=== PATIENT | female | born 1945 | race Caucasian/White ===

== ENCOUNTER → 2018-01-12 | Outpatient (CLI) | payer MEDICARE ==
[2018-01-12 10:59] LABS: HCT 45.6 % (34.0-46.0); HGB 14.8 gm/dL (11.4-16.0); MCH 30.6 pg (25.0-35.0); MCHC 32.4 g/dL (31.0-37.0); MCV 94.5 fL (80.0-100.0); Mean Platelet Volume 7.9; Platelet Count 156 k/uL (150-450); RBC 4.82 m/uL (3.80-5.40); RDW 13.8 % (11.5-15.5)
[2018-01-12 11:27] LABS: Potassium 4.9 mmol/L (3.5-5.1)
== END | disposition home or self-care (01) ==
LOC: LABPAT 10:12
PROVIDERS: ATTEND Internal Medicine Interventional Cardiology
DX: Z01.812 Encounter for preprocedural laboratory examination (principal); R94.39 Abnormal result of other cardiovascular function study; I10 Essential (primary) hypertension; E78.2 Mixed hyperlipidemia; E78.5 Hyperlipidemia, unspecified
CPT/HCPCS: 36415; 80051; 82565; 84520; 85027

== ENCOUNTER 2018-01-27 06:12 | Day surgery (SDC) | payer MEDICARE ==
[~2018-01-27 06:12] MED LIST: ALPRAZolam 0.25 MG TAB PO PRN; ALPRAZolam 0.5 MG TAB PO PRN; ASPIRIN 325 MG TAB PO STA; ATORVASTATIN 80 MG TAB PO STA; NITROGLYCERIN SL TABS 0.4 MG TAB SUBLINGUAL PRN; SODIUM CHLORIDE 0.9% 1,000 ML in EMPTY BAG 1 BAG IV ONE
[2018-01-27] MEDS ORDERED: ATENOLOL 25 MG TAB PO STA (07:04)
[2018-01-27] MEDS ORDERED: SODIUM CHLORIDE 0.9% 1,000 ML IV ONE (07:05)
[2018-01-27] MEDS ORDERED: NICOTINE 21MG/24HR PATCH TRANSDERM STA (07:11)
[2018-01-27 07:17] LABS: Glucose,Whole Blood 153 mg/dL (75-99)
[2018-01-27] MEDS ORDERED: HEPARIN SODIUM 1,000 UN/ML (10ML VL) ONE (07:25)
[2018-01-27] MEDS ORDERED: VERAPAMIL 2.5 MG/ML 2 ML AMP ONE (07:25)
[2018-01-27] MEDS ORDERED: LIDOCAINE 1% INJ 10MG/ML (20 ML MDV) ONE (07:25)
[2018-01-27] MEDS ORDERED: fentaNYL (PF) 50 MCG/ML 2 ML AMP ONE (07:25)
[2018-01-27] MEDS ORDERED: LIDOCAINE 1% (PF) 10MG/ML VIAL SQ ONE (07:34)
[2018-01-27] MEDS ORDERED: fentaNYL (PF) 50 MCG/ML 2 ML AMP IVP ONE (07:34)
[2018-01-27] MEDS: VERAPAMIL SYRINGE (5 MG/10 ML) INTRAARTER ONE ×2 (07:35→08:30)
[2018-01-27] MEDS ORDERED: NITROGLYCERIN SL TABS 0.4 MG TAB SUBLINGUAL ONE ×2 (07:45→07:46)
[2018-01-27] MEDS ORDERED: PRASUGREL 10 MG TAB ONE (07:55)
[2018-01-27] MEDS ORDERED: PRASUGREL 10 MG TAB PO ONE (07:59)
[2018-01-27] MEDS ORDERED: IOPAMIDOL-370 125ML BTL INJ ONE (08:14)
[2018-01-27] MEDS ORDERED: NITROGLYCERIN 1000MCG/10ML SYRINGE INTRACORON ONE (08:25)
[2018-01-27] MEDS ORDERED: IOPAMIDOL-370 100ML BTL INJ ONE (08:28)
[2018-01-27] MEDS ORDERED: ATROPINE SULFATE 0.1 MG/ML 10ML SYRINGE IV PRN (08:52)
[2018-01-27] MEDS ORDERED: RX INFO: IV CONTRAST WAS GIVEN 1 EACH MISC MISCELLANE PRN (08:52)
[2018-01-27] MEDS ORDERED: NITROGLYCERIN SL TABS 0.4 MG TAB SUBLINGUAL PRN (08:52)
[2018-01-27] MEDS ORDERED: ZOLPIDEM 5 MG TAB PO PRN (08:52)
[2018-01-27] MEDS ORDERED: MAG HYDROX/AL HYDROX/SIMETH 30 ML CUP PO PRN (08:52)
[2018-01-27] MEDS ORDERED: NON-FORMULARY DRUG (Biotin [Biotin] 10,000 MCG) PO SCH (09:00)
[2018-01-27] MEDS ORDERED: SODIUM CHLORIDE 0.9% 1,000 ML IV SCH (09:00)
--- NOTE | 2018-01-27 09:37 | PTCA ---
PERCUTANEOUSTRANS CORORONARY ANGIOGRAPHY Mrs. Lyles is a 72-year-old female with a history of hypertension, hyperlipidemia, diabetes mellitus, who presented with symptoms of dyspnea and abnormal myocardial perfusion imaging, underwent cardiac catheterization, was found to have critical stenosis involving the mid LAD with chronic occluded right PLV with collaterals from the left system. In view of that, recommendation was made regarding angioplasty and stenting. The procedures, risks and complication were discussed with the patient who is in full understanding and agreement. PROCEDURE: A 6-Romansh FL 3.5 guiding catheter was introduced into the system after cannulating the left main, a 0.014 advanced medium weight J-wire was advanced across the lesion, positioned distal LAD. Attempts to advance a whisper J-wire into the LAD were unsuccessful because of the angulation. At that point, that wire was removed and a 2.5 x 8 mm Trek balloon was advanced and one inflation 8 atmospheres was done. Following that the balloon was removed and a 2.5 x 15 mm Xience ER stent was deployed, postdilated at 14 atmospheres after the last inflation, after appropriate wait, the balloon and the guidewire were withdrawn back in the guiding catheter. Images were obtained and repeated. Those images reveal stable successful stenting. At that point, the guiding catheter, the balloon and the guidewire were removed and left ventricular end-diastolic pressure was calculated. Following that, catheter and sheaths were removed, hemostasis was obtained with deployment of a TR band. There was no immediate complication. Patient is returned to her room in stable condition. Of note, the patient had no chest discomfort. She had EKG changes that resolved at the end of the procedure. She received a total dose of 12,000 units of intravenous heparin and her ACT was monitored. She received a loading dose off Effient. RESULTS: Successful stenting of the mid LAD with reduction of stenosis from 90% to 0% with diffuse intimal disease in the proximal segment. RECOMMENDATION: Patient will be continued on present therapy with aggressive risk modifications being initiated. The importance of dual antiplatelet treatment was discussed with the patient and her family who are in full understanding and agreement. Duration of procedure is 61 minutes. MMODL / IJN: [id number] / MTDD
--- NOTE | 2018-01-27 09:51 | CC ---
CARDIAC CATHETERIZATION REPORT Mrs. Lyles is a 72-year-old female with known history of hypertension, hyperlipidemia, diabetes mellitus, who presented with symptoms of dyspnea and had an abnormal myocardial perfusion imaging. In view of that, recommendation was made regarding cardiac catheterization. The procedure as well as the risks and the complications were discussed with the patient who is in full understanding and agreement. PROCEDURE: Patient was brought to labor arbitrator hearing office in the fasting semi-sedated state after receiving fentanyl and Benadryl and achieving moderate conscious sedated state. Using Xylocaine anesthesia in the Seldinger technique, a 6-Turkish sheath was introduced in the right radial artery. Selective right and left coronary angiography performed using 5- Turkish 3.5 bend right and left Reji catheters. Multiple views of the coronary artery including hemiaxial views obtained. Following that, angioplasty and stenting of the LAD was performed. Following that 5-Turkish tight pigtail catheter was introduced in the left ventricle and pressures were calculated. Following that, catheter and sheath were removed. Hemostasis was obtained with deployment of a TR band. There was no immediate complication. Patient is returned to her room in stable condition. Of note, the patient received intra-arterial verapamil as well as a total of 12,000 units of intravenous heparin throughout the angioplasty. FINDINGS: LEFT MAIN: This is a short size vessel trifurcating left circumflex, left anterior descending artery and ramus intermedius. Left main coronary artery has no evidence of high-grade stenosis. LEFT ANTERIOR DESCENDING ARTERY: This is a large-sized vessel reaching to the apex with a wraparound apex segment, tortuous throughout its course, giving rise to 2 diagonal branches. The second one is large in caliber. The proximal LAD has a 30% plaque. In the mid segment of the LAD, at a tortuous segment, there is 90% stenosis. The diagonal branch has 2 areas of disease up to 95% with diffuse intimal disease throughout the vessel. RAMUS INTERMEDIUS: This vessel is large in caliber, reaching to the apical lateral wall. The ramus intermedius has mild intimal disease in the proximal segment of 30% without any evidence of high-grade stenosis. LEFT CIRCUMFLEX: This is a nondominant vessel giving rise to 2 obtuse marginal branches, the first one is large in caliber, quite tortuous. The first obtuse marginal branch has an area of 30% to 40% plaque proximally. The rest of the vessel has diffuse intimal disease. RIGHT CORONARY ARTERY: This is a dominant vessel tortuous in the proximal and mid segment, giving rise to a PDA distally. The PLV is totally occluded at its origin from the mid segment. There is no significant antegrade with the PLV. COLLATERALS: There is collaterals from the left coronary system toward the right PLV. LEFT VENTRICULOGRAM: The left ventriculogram is not performed. HEMODYNAMICS: There was no gradient across the aortic valve. The left ventricular end- diastolic pressure was 12 mmHg. CONCLUSION: 1. Chronic chronically occluded right PLV with collaterals from the left system. 2. Significant disease in the mid LAD with significant disease in the second diagonal branch that is small in caliber. 3. Mild to moderate disease in the circumflex and the ramus intermedius. RECOMMENDATION: In view of finding anatomy, I am recommending proceeding with angioplasty and stenting of the LAD. The procedure as well as the risks and the complications were discussed with the patient who is in full understanding and agreement. POONAM / JUSTEN: [id number] / KESHAV
[2018-01-27] MEDS ORDERED: ALLOPURINOL 100 MG TAB PO SCH (11:00)
[2018-01-27] MEDS ORDERED: CALCIUM CARB-VIT D 500MG-200UN 1 EACH TAB PO SCH (11:00)
[2018-01-27] MEDS ORDERED: LISINOPRIL 5 MG TAB PO SCH (11:00)
[2018-01-27] MEDS ORDERED: ASPIRIN 81 MG PO SCH (11:00)
[2018-01-27 11:20] VITALS: BMI 39.2
[2018-01-27] MEDS ORDERED: amLODIPine 5 MG TAB PO STA ×2 (12:36→16:30)
[2018-01-27] MEDS: GLIMEPIRIDE 4 MG TAB PO SCH ×2 (12:41→16:37)
[2018-01-27 16:37] LABS: Glucose,Whole Blood 220 mg/dL (75-99)
[2018-01-27] MEDS ORDERED: ATORVASTATIN 40 MG TAB PO SCH (21:00)
[2018-01-27] MEDS ORDERED: LATANOPROST 0.005% OPHTH DROPS 2.5 ML BTL BOTH EYES SCH (21:00)
[2018-01-27 21:16] LABS: Glucose,Whole Blood 197 mg/dL (75-99)
[2018-01-28 06:17] LABS: Glucose,Whole Blood 164 mg/dL (75-99)
[2018-01-28] MEDS: GLIMEPIRIDE 4 MG TAB PO SCH (06:18)
[2018-01-28 06:53] LABS: Calcium 9.3 mg/dL (8.4-10.2); Potassium 3.8 mmol/L (3.5-5.1)
--- NOTE | 2018-01-28 07:39 | PN ---
PROGRESS NOTE Mrs. Lyles is a 72-year-old female with a history of hypertension, hyperlipidemia, diabetes mellitus, who presented with abnormal myocardial perfusion imaging, underwent cardiac catheterization, was found to have chronically occluded right PLV, significant stenosis in the mid LAD and the first diagonal branch, underwent stenting of her LAD. She is doing well this morning, ambulating without difficulty. Denying having any chest pain. No dizziness. No palpitation. No nausea. She is continued on aspirin 81 mg daily, atenolol 25 mg daily, Lipitor 40 mg daily, glimepiride 4 mg twice a day, lisinopril 5 mg daily and Effient 10 mg daily and allopurinol 100 mg daily. PHYSICAL EXAMINATION: Blood pressure 130/60 with a heart rate in the 60s. LUNGS: Clear. HEART: Regular rate and rhythm, S1, S2. No S3. No rub. ABDOMEN: Soft nontender. EXTREMITIES: No edema. Right radial pulse intact. LAB DATA: Revealed BUN and creatinine 32 and 1.09, potassium 3.8. EKG shows no acute changes. IMPRESSION: 1. Status post stenting of the left anterior descending artery. 2. Chronically occluded right PLV. 3. Hypertension. 4. Hyperlipidemia. 5. Diabetes mellitus. 6. Chronic tobacco use. RECOMMENDATION: Patient will be discharged home today and followed as an outpatient. MMODL / ROSENDAN: [id number] /
[2018-01-28 08:14] VITALS: BP 141/71; PULSE 53; RESP 18; TEMP 97.2
[2018-01-28] MEDS ORDERED: ATENOLOL 25 MG TAB PO SCH (09:00)
[2018-01-28] MEDS ORDERED: ASPIRIN 81 MG PO SCH (09:00)
[2018-01-28] MEDS ORDERED: PRASUGREL 10 MG TAB PO SCH (09:00)
== END 2018-01-28 08:35 | disposition home or self-care (01) ==
LOC: CATHCVL 06:12 → 6SEL 08:32 → CATHCVL 01-28 08:35
PROVIDERS: ATTEND Internal Medicine Interventional Cardiology
DX: I25.10 Atherosclerotic heart disease of native coronary artery without angina pectoris (principal); I25.82 Chronic total occlusion of coronary artery; R94.39 Abnormal result of other cardiovascular function study; I10 Essential (primary) hypertension; E11.9 Type 2 diabetes mellitus without complications; E78.2 Mixed hyperlipidemia; F17.210 Nicotine dependence, cigarettes, uncomplicated; Z82.49 Family history of ischemic heart disease and other diseases of the circulatory system; Z79.84 Long term (current) use of oral hypoglycemic drugs; Z79.82 Long term (current) use of aspirin; Z79.899 Other long term (current) drug therapy; Z88.6 Allergy status to analgesic agent; Z88.0 Allergy status to penicillin
CPT/HCPCS: 93458; 80048; C9600; C1769 ×4; C1887; C1894; C1725; C1874; S4990; J3010; J2001; J1644; Q9967 ×2

== ENCOUNTER 2018-08-10 11:36 | Emergency (ER) | payer MEDICARE ==
[2018-08-10 12:23] VITALS: BP 174/89; PULSE 63; RESP 16; TEMP 97.8
--- NOTE | 2018-08-10 12:55 | ED ---
General Adult HPI - General Chief complaint: Extremity Problem,Nontraumatic Stated complaint: Leg pain, unable to walk Time Seen by Provider: 08/10/18 12:32 Source: patient, RN notes reviewed, old records reviewed Mode of arrival: wheelchair Limitations: no limitations - History of Present Illness Initial comments: 73-year-old female presents for evaluation of pain in her right thigh. Symptoms began this morning. Patient is concerned about blood clot in the leg. She denies any injury or overuse. She states the pain is significantly worse with movement, improved by rest. No pain in the knee calf or ankle. No fever or chills. No abdominal pain nausea vomiting. - Related Data Home Medications Medication Instructions Recorded Confirmed Allopurinol [Zyloprim] 100 mg PO DAILY 01/24/18 08/10/18 Aspirin [Adult Low Dose Aspirin EC] 81 mg PO DAILY 01/24/18 08/10/18 Atenolol 25 mg PO DAILY 01/24/18 08/10/18 Atorvastatin [Lipitor] 40 mg PO HS 01/24/18 08/10/18 Biotin 10,000 mcg PO DAILY 01/24/18 08/10/18 Calcium Carbonate [Calcium] 600 mg PO DAILY 01/24/18 08/10/18 Glimepiride [Amaryl] 4 mg PO BID 01/24/18 08/10/18 Latanoprost Ophth [Xalatan 0.005%] 1 drops BOTH EYES HS 01/24/18 08/10/18 Turmeric Root Extract [Turmeric] 500 mg PO DAILY 01/24/18 08/10/18 metFORMIN HCL [Glucophage] 500 mg PO QID 01/24/18 08/10/18 Previous Rx's Medication Instructions Recorded Clopidogrel [Plavix] 75 mg PO DAILY #30 tablet 01/28/18 Lisinopril [Zestril] 5 mg PO DAILY #90 tab 01/28/18 Nitroglycerin Sl Tabs [Nitrostat] 0.4 mg SUBLINGUAL Q5M PRN #25 tab 01/28/18 HYDROcodone/APAP 5-325MG [[place] 1 tab PO Q6HR PRN #12 tab 08/10/18 5-325] Allergies Allergy/AdvReac Type Severity Reaction Status Date / Time ibuprofen Allergy Anaphylaxis Verified 08/10/18 12:42 pine AdvReac headaches Uncoded 08/10/18 12:23 Review of Systems ROS Statement: Those systems with pertinent positive or pertinent negative responses have been documented in the HPI. ROS Other: All systems not noted in ROS Statement are negative. Past Medical History Past Medical History: Diabetes Mellitus Additional Past Medical History / Comment(s): clotting disorder History of Any Multi-Drug Resistant Organisms: None Reported Past Surgical History: Cholecystectomy, Hernia Repair, Tubal Ligation Additional Past Surgical History / Comment(s): carpel tunnel Past Anesthesia/Blood Transfusion Reactions: Postoperative Nausea & Vomiting (PONV) Past Psychological History: No Psychological Hx Reported Past Alcohol Use History: None Reported Past Drug Use History: None Reported - Past Family History Sister(s) Family Medical History: Blood Disorder Additional Family Medical History / Comment(s): thrombosis disorder General Exam Limitations: no limitations General appearance: alert, in no apparent distress Head exam: Present: atraumatic, normocephalic Eye exam: Present: normal appearance, PERRL Neck exam: Present: normal inspection. Absent: tenderness, meningismus Respiratory exam: Present: normal lung sounds bilaterally Cardiovascular Exam: Present: regular rate, normal rhythm GI/Abdominal exam: Present: soft. Absent: distended, tenderness Extremities exam: Present: other (Right thigh, ecchymosis on the medial aspect proximal right thigh, femoral pulse 2+, skin is warm and dry, no cellulitis, no erythema, no fluctuance or induration, distal extremity is warm with positive Doppler signal. Normal cap refill.) Neurological exam: Present: alert, oriented X3, CN II-XII intact. Absent: motor sensory deficit Psychiatric exam: Present: normal affect, normal mood Skin exam: Present: warm, dry, intact. Absent: cyanosis, diaphoretic Course Vital Signs 08/10/18 12:20 Temperature 97.8 F Pulse Rate 63 Respiratory 16 Rate Blood Pressure 174/89 O2 Sat by Pulse 99 Oximetry Medical Decision Making - Medical Decision Making 73-year-old female presenting with right thigh pain. No signs of infection on exam, there is small amount of ecchymosis in the medial 5. Distal pulses present, strong Doppler signal in both DP and PT. Normal femoral pulse. Pain is worse with movement. X-rays obtained, this does show some osteoarthritis of the hip as well as calcified 3.7 cm structure which may represent calcified fibroid in the pelvis. No other acute bony abdomen is, no fracture or dislocation. Patient will be given pain control. She will follow-up with her primary care physician. Ultrasound is obtained, this is negative for DVT. Disposition Clinical Impression: Hip pain Disposition: HOME SELF-CARE Condition: Good Instructions (If sedation given, give patient instructions): Osteoarthritis (ED), Hip Sprain (ED) Prescriptions: HYDROcodone/APAP 5-325MG [[place] 5-325] 1 tab PO Q6HR PRN #12 tab PRN Reason: Pain Is patient prescribed a controlled substance at d/c from ED?: No Referrals: Mary Schwab MD [Primary Care Provider] - 1-2 days Time of Disposition: 14:38
--- NOTE | 2018-08-10 13:45 | US ---
EXAMINATION TYPE: US venous doppler duplex LE RT DATE OF EXAM: 08/10/2018 1:35 PM COMPARISON: US CLINICAL HISTORY: Pain. Pt states right leg pain SIDE PERFORMED: Right TECHNIQUE: The lower extremity deep venous system is examined utilizing real time linear array sonog steve with graded compression, doppler sonography and color-flow sonography. VESSELS IMAGED: External Iliac Vein (EIV) Common Femoral Vein Deep Femoral Vein Greater Saphenous Vein * Femoral Vein Popliteal Vein Small Saphenous Vein * Proximal Calf Veins (* superficial vessels) Grayscale, color doppler, spectral doppler imaging performed of the deep veins of the right lower ext remity. There is normal flow, compressibility, vascular waveforms. Right Leg: Negative for DVT IMPRESSION: No sonographic evidence of deep venous thrombosis within the right lower extremity.
--- NOTE | 2018-08-10 14:27 | XR ---
EXAMINATION TYPE: XR Hip Complete RT DATE OF EXAM: 08/10/2018 CLINICAL HISTORY: Right hip pain. TECHNIQUE: AP and frogleg views of the right hip are obtained. COMPARISON: None. FINDINGS: There is no acute fracture/dislocation evident in the right hip. Mild to moderate axial leeroy int space loss and acetabular spurring is present. Rounded calcified 3.7 cm right pelvic structure fa vors calcified fibroid. IMPRESSION: As above.
== END 2018-08-10 14:45 | disposition home or self-care (01) ==
LOC: EC 11:36
DX: M25.551 Pain in right hip (principal); M16.11 Unilateral primary osteoarthritis, right hip; R23.3 Spontaneous ecchymoses; E11.9 Type 2 diabetes mellitus without complications; Z88.6 Allergy status to analgesic agent; Z91.09 Other allergy status, other than to drugs and biological substances; Z79.82 Long term (current) use of aspirin; Z79.84 Long term (current) use of oral hypoglycemic drugs; Z79.899 Other long term (current) drug therapy
CPT/HCPCS: 73502; 99284

== ENCOUNTER → 2019-03-23 | Outpatient (CLI) | payer MEDICARE ==
--- NOTE | 2019-03-24 07:01 | US ---
EXAMINATION TYPE: US kidneys/renal and bladder DATE OF EXAM: 03/23/2019 COMPARISON: None CLINICAL HISTORY: R10.9 FLANK PAIN,R31.9 HEMATURIA. Right flank pain. EXAM MEASUREMENTS: Right Kidney: 11.1 x 5.6 x 4.5 cm Left Kidney: 11.5 x 4.3 x 4.6 cm Right Kidney: Possible hydronephrosis. Lateral lower pole cystic appearing lesion = 3.2 x 3.2 x 3.0 cm. Cortical thinning. Left Kidney: Cortical lobularity seen and thinning. No prominent masses or lesions seen. Bladder: Distended. Anechoic. Bilateral Jets not seen No nephrolithiasis is seen. No masses are identified. The urinary bladder is anechoic. Bilateral ureteral jets are seen. IMPRESSION: 1. Mild right-sided hydronephrosis. 2. Renal parenchymal thinning bilaterally with increased echogenicity of the renal parenchyma which m ay reflect medical renal disease
== END | disposition home or self-care (01) ==
LOC: RADUSWWP 14:16
PROVIDERS: ATTEND Family Medicine
DX: N13.30 Unspecified hydronephrosis (principal); R93.421 Abnormal radiologic findings on diagnostic imaging of right kidney; R93.422 Abnormal radiologic findings on diagnostic imaging of left kidney; Z91.018 Allergy to other foods
CPT/HCPCS: 76770

== ENCOUNTER → 2019-06-30 | Outpatient (CLI) | payer MEDICARE ==
[2019-06-30 12:43] LABS: HCT 48.5 % (34.0-46.0); HGB 16.1 gm/dL (11.4-16.0); MCH 30.5 pg (25.0-35.0); MCHC 33.1 g/dL (31.0-37.0); Mean Platelet Volume 8.2; Platelet Count 170 k/uL (150-450); RBC 5.27 m/uL (3.80-5.40); RDW 13.1 % (11.5-15.5); WBC 9.5 k/uL (3.8-10.6)
[2019-06-30 12:52] LABS: Calcium 10.1 mg/dL (8.4-10.2); Potassium 4.2 mmol/L (3.5-5.1)
== END | disposition home or self-care (01) ==
LOC: LABPAT 12:02
PROVIDERS: ATTEND Urology
DX: Z01.812 Encounter for preprocedural laboratory examination (principal); N13.30 Unspecified hydronephrosis; N39.0 Urinary tract infection, site not specified; E11.9 Type 2 diabetes mellitus without complications
CPT/HCPCS: 36415; 80048; 85027; 87077; 87086; 87186

== ENCOUNTER 2019-07-07 12:11 | Day surgery (SDC) | payer MEDICARE ==
--- NOTE | 2019-07-05 15:53 | P.HPIHPCON ---
History of Present Illness H&P Date: 07/07/19 Chief Complaint: right sided hydronephrosis Ms Lyles is 74 yo female with hx of gross hematuria and right sided hydronephrosis. CT Urogram demonstrated severe narrowing at the UPJ. I discussed with her the option of ureteroscopy, to better evaluate the narrowing and role o ut malignancy as the cause of obstruction. I discussed risk of bleeding and infection, I also discussed risk of injury to ureter. I discussed with her that given severity of stenosis we might need to do this as staged with stent placement followed by ureteroscopy. I discussed with her risk from anesthesia which include but not limited to heart attack, strokes, blood clots and even loss of life. She understood all risk and agreed to proceed with cystoscopy, right ureteroscopy and stent placement Consent for Procedure: I have explained the operation/procedure to the patient, including the risks, benefits, side effects, alternative therapies (including not receiving the proposed treatment or service), the likelihood of the patient achieving his/her goals, and potential recuperation problems for the procedure/sedation/analgesia, as well as any blood products, if indicated. I also explained to the patient the risks, benefits and side effects of the alternatives, as well as the risks related to not receiving the proposed procedure, care, treatment, or services. Past Medical History Past Medical History: Diabetes Mellitus Additional Past Medical History / Comment(s): clotting disorder History of Any Multi-Drug Resistant Organisms: None Reported Past Surgical History: Cholecystectomy, Hernia Repair, Tubal Ligation Additional Past Surgical History / Comment(s): carpel tunnel Past Anesthesia/Blood Transfusion Reactions: Postoperative Nausea & Vomiting (PONV) Past Psychological History: No Psychological Hx Reported Past Alcohol Use History: None Reported Past Drug Use History: None Reported - Past Family History Sister(s) Family Medical History: Blood Disorder Additional Family Medical History / Comment(s): thrombosis disorder Medications and Allergies Home Medications Medication Instructions Recorded Confirmed Type Allopurinol [Zyloprim] 100 mg PO DAILY 01/24/18 08/10/18 History Aspirin [Adult Low Dose Aspirin EC] 81 mg PO DAILY 01/24/18 08/10/18 History Atenolol 25 mg PO DAILY 01/24/18 08/10/18 History Atorvastatin [Lipitor] 40 mg PO HS 01/24/18 08/10/18 History Biotin 10,000 mcg PO DAILY 01/24/18 08/10/18 History Calcium Carbonate [Calcium] 600 mg PO DAILY 01/24/18 08/10/18 History Glimepiride [Amaryl] 4 mg PO BID 01/24/18 08/10/18 History Latanoprost Ophth [Xalatan 0.005%] 1 drops BOTH EYES HS 01/24/18 08/10/18 History Turmeric Root Extract [Turmeric] 500 mg PO DAILY 01/24/18 08/10/18 History metFORMIN HCL [Glucophage] 500 mg PO QID 01/24/18 08/10/18 History Clopidogrel [Plavix] 75 mg PO DAILY #30 tablet 01/28/18 08/10/18 Rx Lisinopril [Zestril] 5 mg PO DAILY #90 tab 01/28/18 08/10/18 Rx Nitroglycerin Sl Tabs [Nitrostat] 0.4 mg SUBLINGUAL Q5M PRN #25 tab 01/28/18 08/10/18 Rx HYDROcodone/APAP 5-325MG [[place] 1 tab PO Q6HR PRN #12 tab 08/10/18 Rx 5-325] Allergies Allergy/AdvReac Type Severity Reaction Status Date / Time ibuprofen Allergy Anaphylaxis Verified 08/10/18 12:42 pine AdvReac headaches Uncoded 08/10/18 12:23 Surgical - Exam - General well developed, well nourished, no distress - Respiratory normal expansion, normal respiratory effort - Abdomen Abdomen: soft, non tender - Psychiatric oriented to time, oriented to person, oriented to place Assessment and Plan Assessment: 74 yo female with hx of right sided severe hydronephrosis. -OR for right ureteroscopy and stent placement
[2019-07-06 13:37] VITALS: BMI 37.3
[~2019-07-07 12:11] MED LIST changes: -ALPRAZolam 0.25 MG TAB PO PRN; -ALPRAZolam 0.5 MG TAB PO PRN; -ASPIRIN 325 MG TAB PO STA; -ATORVASTATIN 80 MG TAB PO STA; +DEXAMETHASONE SOD PHOSPHATE 10 MG/ML 1 ML VIAL IV ONE; +HEPARIN SODIUM,PORCINE 5,000 UNIT/ML 1 ML VIAL SQ ONE; +HYDROmorphone 0.5 MG/0.5 ML SYRINGE IVP PRN; +LACTATED RINGERS 1,000 ML IV SCH; +LIDOCAINE 1% (10MG/ML) FOR IV START INTRADERMA PRN; +MIDAZOLAM 2 MG/2 ML VIAL IV PRN; -NITROGLYCERIN SL TABS 0.4 MG TAB SUBLINGUAL PRN; +ONDANSETRON 4 MG/2 ML VIAL IVP ONE; -SODIUM CHLORIDE 0.9% 1,000 ML in EMPTY BAG 1 BAG IV ONE; +fentaNYL (PF) 50 MCG/ML 2 ML AMP IVP PRN
[2019-07-07 12:33] VITALS: RESP 16
[2019-07-07 12:40] LABS: Glucose,Whole Blood 151 mg/dL (75-99)
[2019-07-07] MEDS ORDERED: LIDOCAINE 1% INJ 10MG/ML (20 ML MDV) ONE (14:55)
[2019-07-07] MEDS ORDERED: MIDAZOLAM 2 MG/2 ML VIAL ONE (14:55)
[2019-07-07] MEDS ORDERED: fentaNYL (PF) 50 MCG/ML 2 ML AMP ONE (14:55)
[2019-07-07] MEDS ORDERED: PROPOFOL 10 MG/ML 20 ML VIAL IV ONE (14:55)
[2019-07-07] MEDS ORDERED: SUCCINYLCHOLINE CHLORIDE 100 MG/5 ML SYR IV ONE (14:55)
[2019-07-07] MEDS ORDERED: IOPAMIDOL-370 50ML BTL MISCELLANE ONE (15:00)
[2019-07-07] MEDS ORDERED: LACTATED RINGERS 1,000 ML IV ONE (15:27)
[2019-07-07 16:32] LABS: Glucose,Whole Blood 132 mg/dL (75-99)
[2019-07-07 16:33] VITALS: TEMP 97.1
[2019-07-07 17:47] VITALS: BP 149/73; PULSE 69
--- NOTE | 2019-07-07 23:27 | FL ---
EXAMINATION TYPE: FL urography retrograde DATE OF EXAM: 07/07/2019 CLINICAL HISTORY: Right-sided hydronephrosis. TECHNIQUE: Fluoroscopy. COMPARISON: Renal ultrasound March 23, 2019. FINDINGS: Fluoroscopic guidance was provided during balloon dilatation of ureter stricture procedure performed by Dr. Oswald. A total of 1 minute 32 seconds of fluoroscopic time was utilized during th e procedure and 7 spot images are acquired. Images acquired show access of right ureter with hydronep hrosis and subsequent proximal angioplasty and stent insertion. IMPRESSION: As Above.
--- NOTE | 2019-07-09 21:35 | P.OP ---
Date of Procedure: 07/07/19 Preoperative Diagnosis: Right-sided hydronephrosis Postoperative Diagnosis: Same Procedure(s) Performed: Cystoscopy, right retrograde pyelogram,Ureteroscopy, balloon dilation, and stent placement Implants: 7Fr X 22 cm stent Anesthesia: MARIELY Surgeon: Justin Tai Estimated Blood Loss (ml): 5 Pathology: other (right renal pelvis cytology) Disposition: PACU Indications for Procedure: Ms Lyles is 74 yo female with hx of gross hematuria and right sided hydronephrosis. CT Urogram demonstrated severe narrowing at the UPJ. I discussed with her the option of ureteroscopy, to better evaluate the narrowing and role out malignancy as the cause of obstruction. I discussed risk of bleeding and infection, I also discussed risk of injury to ureter. I discussed with her that given severity of stenosis we might need to do this as staged with stent placement followed by ureteroscopy. I discussed with her risk from anesthesia which include but not limited to heart attack, strokes, blood clots and even loss of life. She understood all risk and agreed to proceed with cystoscopy, r ight ureteroscopy and stent placement Operative Findings: Tortures right proximal ureter, narrowing at the UPJ with hydronephrosis No suspcious lesions identified along the UPJ. Description of Procedure: The patient was brought to the operating room, general anesthesia was induced. She was prepped and draped in sterile fashion placed in a dorsal lithotomy position. A cystoscope fitted with a 22 Fr sheath was inserted per urethra. Cystoscopy was performed showed no abnormality within the bladder. The right ureteral orifice was intubated with a 6-Georgian open-ended catheter. Retrograde pyelogram was performed which showed narrowing at the UPJ with moderate hydronephrosis. the right proximal ureter also appeared tortures. No additional filling defect were identified. At this time sensor wire was advanced through the catheter and catheter was removed with wire in place. Next 11-13 Fr access sheath was advanced over the wire and into the proximal ureter.The scope was advanced, I was able to advance scope past the narrowing with UPJ with the assistance of wire. But of note the UPJ Was narrowed to 6-7Fr. Renoscopy was performed which showed no suspicious lesions concerning for malignancy within the kidney or UPJ. Renal cytology was obtained. Pull back ureteroscopy showed no injury to the ureter. The cystoscope was reinserted and right ureteral orfice was intubated with sensor wire. Next a 12 Fr balloon dilator was advanced over the wire and into the renal pelvis. The UPJ was dilated under fluoroscopy using the balloon dilator. The balloon dilator was removed with wire in place. Next a 7 Fr X 22 cm stent was advanced over the wire. the proxima curl was visualized on fluoroscopy while the distal curl was visualized using the cytoscope. Bladder was emptied at the end of case. Patient was awakened from anesthesia and taken to recovery room in stable condition
== END 2019-07-07 18:03 | disposition home or self-care (01) ==
LOC: OR 12:11
PROVIDERS: ATTEND Urology
DX: Q62.11 Congenital occlusion of ureteropelvic junction (principal); N13.30 Unspecified hydronephrosis; E11.9 Type 2 diabetes mellitus without complications; Z90.49 Acquired absence of other specified parts of digestive tract; Z98.51 Tubal ligation status; Z86.2 Personal history of diseases of the blood and blood-forming organs and certain disorders involving the immune mechanism; Z79.84 Long term (current) use of oral hypoglycemic drugs; Z79.02 Long term (current) use of antithrombotics/antiplatelets; Z79.82 Long term (current) use of aspirin; Z79.899 Other long term (current) drug therapy; Z88.6 Allergy status to analgesic agent; Z91.09 Other allergy status, other than to drugs and biological substances
CPT/HCPCS: 74420; 52332; C2625; C1769; C1758; J2250; J1100; J0690; J2405; J2001; J3010; J0330; J2704; Q9967; 88108

== ENCOUNTER 2019-11-09 16:33 | Observation (INO) | payer MEDICARE ==
[2019-11-09] MEDS ORDERED: methylPREDNISolone SOD SUCCI 125 MG/2 ML VIAL IV STA (17:17)
[2019-11-09] MEDS ORDERED: ONDANSETRON 4 MG/2 ML VIAL IVP STA ×2 (17:33→18:38)
[2019-11-09] MEDS ORDERED: MORPHINE SULFATE 2 MG/ML SYRINGE IVP ONE (17:33)
--- NOTE | 2019-11-09 17:33 | ED ---
Extremity Problem HPI - General Source: patient, RN notes reviewed Mode of arrival: wheelchair Limitations: no limitations <Ck Esteban - Last Filed: 11/09/19 18:31> <Crystal Estrada - Last Filed: 11/13/19 00:54> - General Chief complaint: Extremity Problem,Nontraumatic Stated complaint: Wrist Pain Time Seen by Provider: 11/09/19 17:04 - History of Present Illness Initial comments: 74-year-old female presents emergency from chief complaint of right wrist pain, swelling. Patient states his started abruptly when she woke up this morning. She states she does have some known arthritis. Patient states that she's never had any like this in the past. Patient states she saw PCP [facility] here for further evaluation. Patient states she took some sort of medication at home for arthritis which seemed to help. Patient does admit that she has ALLERGY to ibuprofen. (Ck Esteban) - Related Data Home Medications Medication Instructions Recorded Confirmed Allopurinol [Zyloprim] 100 mg PO DAILY 01/24/18 11/09/19 Atenolol 25 mg PO DAILY 01/24/18 11/09/19 Atorvastatin [Lipitor] 40 mg PO DAILY 01/24/18 11/09/19 Glimepiride [Amaryl] 4 mg PO BID 01/24/18 11/09/19 Latanoprost Ophth [Xalatan 0.005%] 1 drop BOTH EYES HS 01/24/18 11/09/19 metFORMIN HCL [Glucophage] 500 mg PO TID 01/24/18 11/09/19 Etodolac [Lodine] 400 mg PO BID 11/09/19 11/09/19 traMADol HCL 50 mg PO BID PRN 11/09/19 11/09/19 Previous Rx's Medication Instructions Recorded Lisinopril [Zestril] 5 mg PO DAILY #90 tab 01/28/18 Cephalexin [Keflex] 500 mg PO BID #4 cap 11/10/19 Allergies Allergy/AdvReac Type Severity Reaction Status Date / Time ibuprofen Allergy Anaphylaxis Verified 11/09/19 19:08 pine AdvReac headaches Uncoded 11/09/19 19:08 Review of Systems ROS Other: All systems not noted in ROS Statement are negative. <Ck Esteban - Last Filed: 11/09/19 18:31> ROS Other: All systems not noted in ROS Statement are negative. <Crystal Estrada Chase - Last Filed: 11/13/19 00:54> ROS Statement: Those systems with pertinent positive or pertinent negative responses have been documented in the HPI. Past Medical History Past Medical History: Diabetes Mellitus Additional Past Medical History / Comment(s): clotting disorder History of Any Multi-Drug Resistant Organisms: None Reported Past Surgical History: Cholecystectomy, Hernia Repair, Tubal Ligation Additional Past Surgical History / Comment(s): carpel tunnel, stent placed in right kidney and then removed Past Anesthesia/Blood Transfusion Reactions: Postoperative Nausea & Vomiting (PONV) Past Psychological History: No Psychological Hx Reported Smoking Status: Never smoker Past Alcohol Use History: None Reported Past Drug Use History: None Reported - Past Family History Sister(s) Family Medical History: Blood Disorder Additional Family Medical History / Comment(s): thrombosis disorder <Ck Esteban - Last Filed: 11/09/19 18:31> General Exam Limitations: no limitations General appearance: alert, in no apparent distress Head exam: Present: atraumatic, normocephalic, normal inspection Eye exam: Present: normal appearance, PERRL, EOMI. Absent: scleral icterus, conjunctival injection, periorbital swelling ENT exam: Present: normal exam, normal oropharynx, mucous membranes moist, TM's normal bilaterally Neck exam: Present: normal inspection, full ROM. Absent: tenderness, meningismus, lymphadenopathy Respiratory exam: Present: normal lung sounds bilaterally. Absent: respiratory distress, wheezes, rales, rhonchi, stridor Cardiovascular Exam: Present: regular rate, normal rhythm, normal heart sounds. Absent: systolic murmur, diastolic murmur, rubs, gallop, clicks Extremities exam: Present: other (Moderate swelling to the right wrist with erythema, increased warmth there is pain with range of motion there is small petechia noted distally and proximal to the area Refill less than 2 seconds.) <Ck Esteban - Last Filed: 11/09/19 18:31> Course Vital Signs 11/09/19 11/09/19 17:06 19:38 Temperature 99 F 98.4 F Pulse Rate 60 60 Respiratory 18 18 Rate Blood Pressure 206/93 170/78 O2 Sat by Pulse 96 98 Oximetry Medical Decision Making - Lab Data Result diagrams: 11/09/19 17:54 11/09/19 17:54 <Ck Esteban - Last Filed: 11/09/19 18:31> - Lab Data Result diagrams: 11/10/19 07:57 11/10/19 07:57 <Crystal Estrada - Last Filed: 11/13/19 00:54> - Medical Decision Making 74-year-old female presented for evaluation of right wrist pain since onset. This concern for possible septic arthritis versus pseudogout. Patient's will be admitted for IV antibiotics, orthopedic evaluation, pain control. Patient has had recent urinary stent removed secondary compilations infections is concerning as this could be a precursor for her infection. (Ck Esteban) I was available for consultation in the emergency department. The history and physical exam were done by the midlevel provider. I was consulted for this patients care. I reviewed the case with the midlevel provider and based on their presentation of the patient, I agree with the assessment, medical decision making and plan of care as documented. Chart was dictated using [employer] dictation software. Attempts were made to correct any dictation errors however some typographical errors may persist. Patient was seen during a national state of emergency due to the Covid-19 pandemic. (Crystal Estrada) - Lab Data Lab Results 11/09/19 11/09/19 11/09/19 Range/Units 17:54 17:54 17:54 WBC 13.8 H (3.8-10.6) k/uL RBC 4.67 (3.80-5.40) m/uL Hgb 14.1 (11.4-16.0) gm/dL Hct 43.2 (34.0-46.0) % MCV 92.5 (80.0-100.0) fL MCH 30.1 (25.0-35.0) pg MCHC 32.5 (31.0-37.0) g/dL RDW 13.3 (11.5-15.5) % Plt Count 175 (150-450) k/uL Neutrophils % 73 % Lymphocytes % 18 % Monocytes % 6 % Eosinophils % 2 % Basophils % 0 % Neutrophils # 10.0 H (1.3-7.7) k/uL Lymphocytes # 2.4 (1.0-4.8) k/uL Monocytes # 0.8 (0-1.0) k/uL Eosinophils # 0.3 (0-0.7) k/uL Basophils # 0.1 (0-0.2) k/uL ESR 47 H (0-20) mm/hr Sodium 140 (137-145) mmol/L Potassium 3.4 L (3.5-5.1) mmol/L Chloride 105 (98-107) mmol/L Carbon Dioxide 27 (22-30) mmol/L Anion Gap 8 mmol/L BUN 26 H (7-17) mg/dL Creatinine 0.96 (0.52-1.04) mg/dL Est GFR (CKD-EPI)AfAm 68 (>60 ml/min/1.73 sqM) Est GFR (CKD-EPI)NonAf 59 (>60 ml/min/1.73 sqM) Glucose 235 H (74-99) mg/dL Uric Acid 4.9 (3.7-7.4) mg/dL Calcium 8.5 (8.4-10.2) mg/dL Total Bilirubin 0.7 (0.2-1.3) mg/dL AST 15 (14-36) U/L ALT 18 (4-34) U/L Alkaline Phosphatase 90 (38-126) U/L C-Reactive Protein 47.3 H (<10.0) mg/L Total Protein 6.2 L (6.3-8.2) g/dL Albumin 3.5 (3.5-5.0) g/dL Rheumatoid Factor 7 (0-15) IU/mL CRISTAL Screen NEGATIVE (NEGATIVE) Disposition <Ck Esteban - Last Filed: 11/09/19 18:31> <Crystal Estrada - Last Filed: 11/13/19 00:54> Clinical Impression: Septic arthritis of right wrist Disposition: ADMITTED IP TO THIS [facility] Condition: Fair
--- NOTE | 2019-11-09 17:55 | XR ---
EXAMINATION TYPE: XR wrist complete RT DATE OF EXAM: 11/09/2019 CLINICAL HISTORY: Pain and swelling. TECHNIQUE: Frontal, lateral, scaphoid, and oblique images of the right wrist are obtained. COMPARISON: None FINDINGS: There is no acute fracture/dislocation evident in the right wrist. Moderate to severe narr owing base of first metacarpal and triscaphe joint. Narrowing of the radiocarpal joint. Demineralizat ion is present. Subchondral cyst formation base of the capitate. Mild diffuse subcutaneous edema is p resent. IMPRESSION: As above.
[2019-11-09 17:59] LABS: Basophils # (A) 0.1 k/uL (0-0.2); Basophils % (A) 0 %; Eosinophils # (A) 0.3 k/uL (0-0.7); Eosinophils % (A) 2 %; HCT 43.2 % (34.0-46.0); HGB 14.1 gm/dL (11.4-16.0); Lymphocytes # (A) 2.4 k/uL (1.0-4.8); Lymphocytes % (A) 18 %; MCH 30.1 pg (25.0-35.0); MCHC 32.5 g/dL (31.0-37.0); MCV 92.5 fL (80.0-100.0); Monocytes # (A) 0.8 k/uL (0-1.0); Monocytes % (A) 6 %; Neutrophils % (A) 73 %; Platelet Count 175 k/uL (150-450); RBC 4.67 m/uL (3.80-5.40); RDW 13.3 % (11.5-15.5); WBC 13.8 k/uL (3.8-10.6)
[2019-11-09 18:19] LABS: Albumin 3.5 g/dL (3.5-5.0); C Reactive Protein 47.3 mg/L (<10.0); Calcium 8.5 mg/dL (8.4-10.2); Potassium 3.4 mmol/L (3.5-5.1); Total Bilirubin 0.7 mg/dL (0.2-1.3); Total Protein 6.2 g/dL (6.3-8.2); Uric Acid 4.9 mg/dL (3.7-7.4)
[2019-11-09] MEDS ORDERED: CEFEPIME 2 GM in SODIUM CHLORIDE 0.9% 100 ML IVPB STA (18:28)
[2019-11-09] MEDS ORDERED: VANCOMYCIN IV PER PHARMACY 1 EACH MISC MISCELLANE PRN (18:29)
[2019-11-09] MEDS ORDERED: VANCOMYCIN 1,500 MG in SODIUM CHLORIDE 0.9% 250 ML IVPB STA (18:33)
[2019-11-09] MEDS ORDERED: HYDROcodone/APAP 5-325MG 1 EACH TAB PO PRN (18:36)
[2019-11-09] MEDS ORDERED: ACETAMINOPHEN TAB 325 MG TAB PO PRN (18:36)
[2019-11-09] MEDS ORDERED: NALOXONE 0.4 MG/ML 1 ML VIAL IV PRN (18:36)
[2019-11-09] MEDS ORDERED: ONDANSETRON 4 MG/2 ML VIAL IVP PRN (18:36)
[2019-11-09 20:06] LABS: Erythrocyte Sedimentation Rate 47 mm/hr (0-20)
[2019-11-09] MEDS ORDERED: GLIMEPIRIDE 4 MG TAB PO SCH (21:00)
[2019-11-09] MEDS ORDERED: metFORMIN 500 MG TAB PO SCH (22:00)
[2019-11-09] MEDS: INSULIN ASPART (NovoLOG) 100 UNIT/ML VIAL SQ SCH (23:30)
[2019-11-10] MEDS ORDERED: NAPROXEN 250 MG TAB PO PRN
[2019-11-10] MEDS ORDERED: LATANOPROST 0.005% OPHTH DROPS 2.5 ML BTL BOTH EYES SCH
--- NOTE | 2019-11-10 00:20 | P.HPIM ---
History of Present Illness H&P Date: 11/09/19 Chief Complaint: right hand 74 year hypertension, diabetes mellitus patient comes in reporting one day history of sudden onset right wrist pain , swelling, warm to the touch , and redness. she reports severe pain 7/10 , she did not take anything for it, went and saw her PCP in the morning who recommended that she goes to the hospital. she currently reports that pain has improved and swelling improved signficantly compared to this morning , when her hand was stiff and could not make a fist, now she is able to move her fingers freely. she denies any injury to the hand, denies any IVDA. patient reports history of Gout 10 years ago , and currently on allopurinol. she also reports recent history of urinary tract problems requiring stent insertion in her ureter about 4 months ago , since then she has been on multiple courses of antibiotics. she has removed the stents recently about 4 days ago and was placed on antibiotics. otherwise she denies any fever or chills, denies URI symptoms, denies urinary changes. Review of Systems Pertinent positives as noted in HPI. All other systems were reviewed and are negative Past Medical History Past Medical History: Diabetes Mellitus Additional Past Medical History / Comment(s): clotting disorder History of Any Multi-Drug Resistant Organisms: None Reported Past Surgical History: Cholecystectomy, Hernia Repair, Tubal Ligation Additional Past Surgical History / Comment(s): carpel tunnel, stent placed in right kidney and then removed Past Anesthesia/Blood Transfusion Reactions: Postoperative Nausea & Vomiting (PONV) Past Psychological History: No Psychological Hx Reported Smoking Status: Never smoker Past Alcohol Use History: None Reported Past Drug Use History: None Reported - Past Family History Sister(s) Family Medical History: Blood Disorder Additional Family Medical History / Comment(s): thrombosis disorder Medications and Allergies Home Medications Medication Instructions Recorded Confirmed Type Allopurinol [Zyloprim] 100 mg PO DAILY 01/24/18 11/09/19 History Atenolol 25 mg PO DAILY 01/24/18 11/09/19 History Atorvastatin [Lipitor] 40 mg PO DAILY 01/24/18 11/09/19 History Glimepiride [Amaryl] 4 mg PO BID 01/24/18 11/09/19 History Latanoprost Ophth [Xalatan 0.005%] 1 drop BOTH EYES HS 01/24/18 11/09/19 History metFORMIN HCL [Glucophage] 500 mg PO TID 01/24/18 11/09/19 History Lisinopril [Zestril] 5 mg PO DAILY #90 tab 01/28/18 11/09/19 Rx Cephalexin [Keflex] 500 mg PO BID 11/09/19 11/09/19 History Etodolac [Lodine] 400 mg PO BID 11/09/19 11/09/19 History traMADol HCL 50 mg PO BID PRN 11/09/19 11/09/19 History Allergies Allergy/AdvReac Type Severity Reaction Status Date / Time ibuprofen Allergy Anaphylaxis Verified 11/09/19 19:08 pine AdvReac headaches Uncoded 11/09/19 19:08 Physical Exam Vitals: Vital Signs Temp Pulse Resp BP Pulse Ox 11/09/19 19:38 98.4 F 60 18 170/78 98 11/09/19 17:06 99 F 60 18 206/93 96 Intake and Output 11/09/19 11/09/19 11/09/19 06:59 14:59 22:59 Other: Weight 82.554 kg Constitutional: No acute distress, conversant, pleasant Eyes: Anicteric sclerae, moist conjunctiva, Pupils equal round reactive to light ENMT: NC/AT Oropharynx clear, no erythema, exudates Neck: Supple, FROM, no masses, or JVD No carotid bruits No thyromegaly Lungs: Clear to auscultation Clear to percussion Normal respiratory effort, no accessory muscle use Cardiovascular: Heart regular in rate and rhythm, No murmurs, gallops, or rubs No peripheral edema Abdominal: Soft Nontender, no guarding, rebound or rigidity Abdomen moving with respiration Normoactive bowel sounds No hepatomegaly, No splenomegaly No palpable mass umbilical hernia, reducible Skin: Normal temperature, tone, texture, turgor No induration No subcutaneous nodules No rash, lesions No ulcers Extremities: swelling over right wrist , mild discomfort to palpation , patient able to make a fist and move her hand around the wrist with some minimal discomfort, no numbness over her fingers, capillary refill immediate No digital cyanosis No clubbing Pedal pulses intact and symmetrical Radial pulses intact and symmetrical No calf tenderness Psychiatric: Alert and oriented to person, place and time Appropriate affect fair judgement Neuro Muscles Strength 5/5 in all 4 extremities Sensation to light touch grossly present throughout Cranial nerves II-XII grossly intact No focal sensory deficits Lymphatics: no palpable cervical or supraclavicular , or inguinal lymph nodes Results CBC & Chem 7: 11/09/19 17:54 11/09/19 17:54 Labs: Abnormal Lab Results - Last 24 Hours (Table) 11/09/19 11/09/19 Range/Units 17:54 17:54 WBC 13.8 H (3.8-10.6) k/uL Neutrophils # 10.0 H (1.3-7.7) k/uL ESR 47 H (0-20) mm/hr Potassium 3.4 L (3.5-5.1) mmol/L BUN 26 H (7-17) mg/dL Glucose 235 H (74-99) mg/dL C-Reactive Protein 47.3 H (<10.0) mg/L Total Protein 6.2 L (6.3-8.2) g/dL Assessment and Plan Assessment: right wrist swelling and pain most likely pseudogout, rule out septic arthritis Xrays showed no fracture, but showing diffuse edema pain control antibiotics with vanco NSAIDs as tolerated elevate the right upper extremity Ortho consult to consider tapping the joint no fever positive leukocytosis elevated CRP follow up cultures chronic conditions recurrent UTI, resume cephalexin DM, hold oral hypoglycemics, start insulin sliding scale Hypertension , resume home meds CODE STATUS:full code DVT prophylaxis: heparin sc tid Discussed with: Patient, ER, RN Anticipated length of stay > than [address]: home A total of 75 minutes was spent on the care of this complex patient more than 50% of the time was spent in counseling and care coordination.
[2019-11-10 07:24] LABS: Glucose,Whole Blood 232 mg/dL (75-99)
[2019-11-10] MEDS ORDERED: PANTOPRAZOLE 40 MG TABLET PO SCH (07:30)
[2019-11-10] MEDS: INSULIN ASPART (NovoLOG) 100 UNIT/ML VIAL SQ SCH ×2 (07:41→12:29)
[2019-11-10] MEDS ORDERED: HEPARIN SODIUM,PORCINE 5,000 UNIT/ML 1 ML VIAL SQ SCH (08:00)
[2019-11-10 08:44] LABS: Basophils % (A) 0 %; Eosinophils % (A) 0 %; HCT 42.7 % (34.0-46.0); HGB 13.6 gm/dL (11.4-16.0); Lymphocytes # (A) 1.2 k/uL (1.0-4.8); Lymphocytes % (A) 12 %; MCH 29.4 pg (25.0-35.0); MCHC 31.9 g/dL (31.0-37.0); MCV 92.2 fL (80.0-100.0); Mean Platelet Volume 8.9; Monocytes # (A) 0.3 k/uL (0-1.0); Monocytes % (A) 3 %; Neutrophils # (A) 8.3 k/uL (1.3-7.7); Neutrophils % (A) 84 %; Platelet Count 170 k/uL (150-450); RBC 4.63 m/uL (3.80-5.40); RDW 13.2 % (11.5-15.5); WBC 9.9 k/uL (3.8-10.6)
[2019-11-10] MEDS ORDERED: atenoloL 25 MG TAB PO SCH (09:00)
[2019-11-10] MEDS ORDERED: lisinopriL 5 MG TAB PO SCH (09:00)
[2019-11-10] MEDS ORDERED: CEPHALEXIN 500 MG CAP PO SCH (09:00)
[2019-11-10] MEDS ORDERED: allopurinoL 100 MG TAB PO SCH (09:00)
[2019-11-10] MEDS ORDERED: ATORVASTATIN 40 MG TAB PO SCH (09:00)
[2019-11-10 09:01] LABS: Calcium 8.3 mg/dL (8.4-10.2)
--- NOTE | 2019-11-10 09:26 | P.CNOR ---
History of Present Illness - [facility] Consult date: 11/10/19 Consult reason: joint pain History of present illness: Patient is a 74-year-old female who presented to [facility] yesterday due to pain, swelling and redness involving her right wrist. Patient denies any recent trauma of the wrist. She has known history of osteoarthritis involving the wrist. She states that it spontaneously happened and it continued to get worse over the last few days. Patient has a complicated history involving urinary tract infections and a recent stenting procedure, she has been on antibiotics for quite some time. She does also have a remote history of gout, she does take allopurinol daily. Patient was evaluated today at bedside, she was made nothing by mouth last night after I discussed case with the ER staff. She notes significant improvement in the redness, swelling and pain of the wrist. They did start her on a broad- spectrum IV antibiotic. She does still have some discomfort mainly on the dorsum of the hand at the radiocarpal joint. She denies any fevers, chills, nausea or vomiting at this time. She has no other orthopedic complaints at this time. Review of Systems Constitutional: Reports as per HPI Past Medical History Past Medical History: Diabetes Mellitus Additional Past Medical History / Comment(s): clotting disorder History of Any Multi-Drug Resistant Organisms: None Reported Past Surgical History: Cholecystectomy, Hernia Repair, Tubal Ligation Additional Past Surgical History / Comment(s): carpel tunnel, stent placed in right kidney and then removed Past Anesthesia/Blood Transfusion Reactions: Postoperative Nausea & Vomiting (PONV) Date of Last Stent Placement:: 2017 Past Psychological History: No Psychological Hx Reported Smoking Status: Never smoker Past Alcohol Use History: None Reported Past Drug Use History: None Reported - Past Family History Sister(s) Family Medical History: Blood Disorder Additional Family Medical History / Comment(s): thrombosis disorder Father Family Medical History: Coronary Artery Disease (CAD) Mother Family Medical History: Diabetes Mellitus Medications and Allergies Home Medications Medication Instructions Recorded Confirmed Type Allopurinol [Zyloprim] 100 mg PO DAILY 01/24/18 11/09/19 History Atenolol 25 mg PO DAILY 01/24/18 11/09/19 History Atorvastatin [Lipitor] 40 mg PO DAILY 01/24/18 11/09/19 History Glimepiride [Amaryl] 4 mg PO BID 01/24/18 11/09/19 History Latanoprost Ophth [Xalatan 0.005%] 1 drop BOTH EYES HS 01/24/18 11/09/19 History metFORMIN HCL [Glucophage] 500 mg PO TID 01/24/18 11/09/19 History Lisinopril [Zestril] 5 mg PO DAILY #90 tab 01/28/18 11/09/19 Rx Cephalexin [Keflex] 500 mg PO BID 11/09/19 11/09/19 History Etodolac [Lodine] 400 mg PO BID 11/09/19 11/09/19 History traMADol HCL 50 mg PO BID PRN 11/09/19 11/09/19 History Allergies Allergy/AdvReac Type Severity Reaction Status Date / Time ibuprofen Allergy Anaphylaxis Verified 11/09/19 19:08 pine AdvReac headaches Uncoded 11/09/19 19:08 Physical Examination Right upper extremity: There are no obvious open lesions, areas of erythema, or soft tissue changes Minimal soft tissue swelling present in the dorsum of the hand at the radiocarpal joint I'm unable to appreciate any areas of fluctuance in that region There is tenderness with palpation over the radial carpal and radial ulnar j oint, also at the base of the thumb. She is able wiggle all the fingers no difficulty, she can make a full fist with minimal difficulty She can pronate and supinate the forearm with no discomfort, range of motion of the elbow with flexion and extension are intact, this reproduces no pain Sensory exam to light touch through the extremities intact, radial pulses 2+ Results - Labs Labs: Abnormal Lab Results - Last 24 Hours (Table) 11/09/19 11/09/19 11/10/19 Range/Units 17:54 17:54 07:22 WBC 13.8 H (3.8-10.6) k/uL Neutrophils # 10.0 H (1.3-7.7) k/uL ESR 47 H (0-20) mm/hr Potassium 3.4 L (3.5-5.1) mmol/L Chloride (98-107) mmol/L BUN 26 H (7-17) mg/dL Glucose 235 H (74-99) mg/dL POC Glucose (mg/dL) 232 H (75-99) mg/dL Calcium (8.4-10.2) mg/dL C-Reactive Protein 47.3 H (<10.0) mg/L Total Protein 6.2 L (6.3-8.2) g/dL 11/10/19 11/10/19 Range/Units 07:57 07:57 WBC (3.8-10.6) k/uL Neutrophils # 8.3 H (1.3-7.7) k/uL ESR (0-20) mm/hr Potassium (3.5-5.1) mmol/L Chloride 108 H (98-107) mmol/L BUN 28 H (7-17) mg/dL Glucose 235 H (74-99) mg/dL POC Glucose (mg/dL) (75-99) mg/dL Calcium 8.3 L (8.4-10.2) mg/dL C-Reactive Protein (<10.0) mg/L Total Protein (6.3-8.2) g/dL H & H 11/09/19 11/10/19 Range/Units 17:54 07:57 Hgb 14.1 13.6 (11.4-16.0) gm/dL Hct 43.2 42.7 (34.0-46.0) % Result Diagrams: 11/10/19 07:57 11/10/19 07:57 - Diagnostic results Wrist/Hand x-ray: report reviewed, image reviewed Assessment and Plan Assessment: Right wrist pain/swelling Right hand basal joint arthritis Right wrist radiocarpal arthritis Possible pseudogout versus gout Other medical comorbidities Plan: I was able to discuss the case, including physical exam findings, labs and imaging studies with my attending Dr. Enrique. We do not feel there is a septic arthritis at this time involving the right hand/wrist. This is likely an exacerbation of her osteoarthritis versus gout/pseudogout Recommend conservative measures at this time, this to include icing and basic range of motion exercises along with [id number] Tylenol/NSAIDs Other medical staff services manager recommendations Thank you for the consult, we'll be available for any further questions regarding this patient, we'll continue to follow during inpatient stay Time with Patient: Less than 30
[2019-11-10 10:22] VITALS: PULSE 57; RESP 18; TEMP 97.6
[2019-11-10] MEDS ORDERED: lisinopriL 5 MG TAB PO STA (11:10)
[2019-11-10 11:48] LABS: Glucose,Whole Blood 320 mg/dL (75-99)
[2019-11-10] MEDS ORDERED: VANCOMYCIN 1,500 MG in SODIUM CHLORIDE 0.9% 250 ML IVPB SCH (12:00)
[2019-11-10 13:16] VITALS: BMI 35.5
[2019-11-10 14:10] LABS: Glucose,Whole Blood 302 mg/dL (75-99)
[2019-11-10 18:56] VITALS: BP 170/82
--- NOTE | 2019-11-10 18:58 | P.DS ---
Providers Date of admission: 11/09/19 18:45 Expected date of discharge: 11/10/19 Attending physician: Samia Mata DO Consults: 11/09/19 18:37 Consult Physician Urgent Consulting Provider: Aidan Enrique Consult Reason/Comments: Possible Septic arthritis Do you want consulting provider notified?: Yes 11/09/19 18:50 Consult Physician Urgent Consulting Provider: Mayank Parker Consult Reason/Comments: Possible septic joint Do you want consulting provider notified?: Yes Primary care physician: Mary Schwab Hospital Course: Discharge Diagnosis: Acute arthritis flare right wrist, possible gout versus pseudogout DM 2 Hx of recurrent UTI and hydronephrosis HTN, accelerated Hospital Course: Patient is a 74-year-old female with a history of recurrent urinary tract infections with hydronephrosis and recent urethral stent removal, diabetes, osteoarthritis, and hypertension who was sent in by Dr. Schwab due swelling, erythema, and limited range of motion of right hand. In the ER she underwent an extensive evaluation. She was afebrile but did have white blood cell count of 13. She underwent an x-ray which showed arthritic changes of the right wrist and hand but no definitive acute abnormality. She was started on vancomycin and admitted for concerns of possible septic arthritis area by the morning after admission her swelling had resolved and range of motion was back to baseline. Her pain was much improved as well. She was seen by orthopedic surgery and infectious disease. They felt that she likely had a flare of osteoarthritis or gout. They recommended discharge home, NSAIDs, and continued allopurinol. She was discharged home in stable condition. She has a follow-up appointment with Dr. Schwab on 11/12 and she will keep this appointment. She can follow-up with Dr. Enrique and as needed. Patient seen and examined at bedside. Her hand is feeling much better. Her range of motion is back. The swelling is gone. She is feeling well. No home. Vital signs reviewed and stable. General: non toxic, no distress, appears at stated age Derm: warm, dry Head: atraumatic, normocephalic, symmetric Eyes: EOMI, no lid lag, anicteric sclera Mouth: no lip lesion, mucus membranes moist Cardiovascular: S1S2 reg, no murmur, positive posterior tibial pulse bilateral, Lungs: CTA bilateral, no rhonchi, no rales , no accessory muscle use Abdominal: soft, nontender to palpation, no guarding, no appreciable organomegaly Ext: Right wrist with dorsi and plantar flexion intact, inversion and eversion intact, no warmth, no erythema. She states there is a chronic for trusion there which is unchanged. no gross muscle atrophy, no edema, no contractures Neuro: CN II-XI grossly intact, no focal neuro deficits Psych: Alert, oriented, appropriate affect A total of 25 minutes of time were spent preparing this complex discharge summary . Patient Condition at Discharge: Fair Plan - Discharge Summary Discharge Rx Participant: Yes New Discharge Prescriptions: Continue Latanoprost Ophth [Xalatan 0.005%] 1 drop BOTH EYES HS metFORMIN HCL [Glucophage] 500 mg PO TID Glimepiride [Amaryl] 4 mg PO BID Atorvastatin [Lipitor] 40 mg PO DAILY Allopurinol [Zyloprim] 100 mg PO DAILY Atenolol 25 mg PO DAILY Lisinopril [Zestril] 5 mg PO DAILY #90 tab Etodolac [Lodine] 400 mg PO BID traMADol HCL 50 mg PO BID PRN PRN Reason: Pain Cephalexin [Keflex] 500 mg PO BID #4 cap Discharge Medication List Allopurinol [Zyloprim] 100 mg PO DAILY 01/24/18 [History] Atenolol 25 mg PO DAILY 01/24/18 [History] Atorvastatin [Lipitor] 40 mg PO DAILY 01/24/18 [History] Glimepiride [Amaryl] 4 mg PO BID 01/24/18 [History] Latanoprost Ophth [Xalatan 0.005%] 1 drop BOTH EYES HS 01/24/18 [History] metFORMIN HCL [Glucophage] 500 mg PO TID 01/24/18 [History] Lisinopril [Zestril] 5 mg PO DAILY #90 tab 01/28/18 [Rx] Etodolac [Lodine] 400 mg PO BID 11/09/19 [History] traMADol HCL 50 mg PO BID PRN 11/09/19 [History] Cephalexin [Keflex] 500 mg PO BID #4 cap 11/10/19 [Rx] Follow up Appointment(s)/Referral(s): Mary Schwab MD [Primary Care Provider] - As Needed (as scheduled on 11/13/2019 ) Patient Instructions/Handouts: Arthritis (DC) Activity/Diet/Wound Care/Special Instructions: Activity: as tolerated Frequent range of motion right wrist and hand, elevate had as able Diet: carb consistent Special Instructions: none Discharge Disposition: HOME SELF-CARE
--- NOTE | 2020-03-03 20:41 | P.CONS ---
History of Present Illness - Reason for Consult Consult date: 11/10/19 Right wrist pain question of septic arthritis Requesting physician: Samia Mata - Chief Complaint Right wrist pain 1 day - History of Present Illness Patient is 74-year-old female presenting to the ER yesterday still complaining of increased pain swelling that started yesterday morning, it started abruptly patient denies any history of any trauma or fall patient describing the pain more sharp in nature intensity is about 5-6 out of 10 and no radiation, with the symptoms patient was evaluated by the patient on arrival to the ER, the patient was afebrile the patient did have elevated white count of 13.8 patient did have x-rays of the wrist completed which shows no fracture or dislocation mild diffuse subcutaneous edema patient has been started on steroids and antibiotics orthopedics and infectious disease was consulted, at the time of evaluation patient pain has much improved currently with no swelling no redness or any limitation of range movement no open wound or any drainage Review of Systems Positive point has been mentioned in the HPI rest of the systems are negative Past Medical History Past Medical History: Diabetes Mellitus Additional Past Medical History / Comment(s): clotting disorder History of Any Multi-Drug Resistant Organisms: None Reported Past Surgical History: Cholecystectomy, Hernia Repair, Tubal Ligation Additional Past Surgical History / Comment(s): carpel tunnel, stent placed in right kidney and then removed Past Anesthesia/Blood Transfusion Reactions: Postoperative Nausea & Vomiting (PONV) Date of Last Stent Placement:: 2017 Past Psychological History: No Psychological Hx Reported Smoking Status: Never smoker Past Alcohol Use History: None Reported Past Drug Use History: None Reported - Past Family History Sister(s) Family Medical History: Blood Disorder Additional Family Medical History / Comment(s): thrombosis disorder Father Family Medical History: Coronary Artery Disease (CAD) Mother Family Medical History: Diabetes Mellitus Medications and Allergies Home Medications Medication Instructions Recorded Confirmed Type Atorvastatin [Lipitor] 40 mg PO DAILY 01/24/18 11/09/19 History Glimepiride [Amaryl] 4 mg PO BID 01/24/18 11/09/19 History Latanoprost Ophth [Xalatan 0.005%] 1 drop BOTH EYES HS 01/24/18 11/09/19 History allopurinoL [Zyloprim] 100 mg PO DAILY 01/24/18 11/09/19 History atenoloL [Atenolol] 25 mg PO DAILY 01/24/18 11/09/19 History metFORMIN HCL [Glucophage] 500 mg PO TID 01/24/18 11/09/19 History lisinopriL [Zestril] 5 mg PO DAILY #90 tab 01/28/18 11/09/19 Rx Etodolac [Lodine] 400 mg PO BID 11/09/19 11/09/19 History traMADol HCL 50 mg PO BID PRN 11/09/19 11/09/19 History Cephalexin [Keflex] 500 mg PO BID #4 cap 11/10/19 Rx Allergies Allergy/AdvReac Type Severity Reaction Status Date / Time ibuprofen Allergy Anaphylaxis Verified 11/09/19 19:08 pine AdvReac headaches Uncoded 11/09/19 19:08 Physical Exam Vitals: Vital Signs Temp Pulse Pulse Resp BP BP Pulse Ox 11/10/19 08:00 57 L 18 11/10/19 07:00 97.6 F 57 L 18 187/88 96 11/10/19 04:25 18 11/10/19 00:20 97.9 F 55 L 18 181/80 96 11/09/19 23:30 18 11/09/19 21:10 18 11/09/19 21:05 97.9 F 56 L 18 153/83 96 11/09/19 19:38 98.4 F 60 18 170/78 98 11/09/19 17:06 99 F 60 18 206/93 96 Intake and Output 11/09/19 11/10/19 11/10/19 22:59 06:59 14:59 Other: Voiding Method Toilet Toilet Toilet Weight 82.554 kg GENERAL DESCRIPTION: Elderly female lying in bed, no distress. No tachypnea or accessory muscle of respiration use. HEENT: Shows Pallor , no scleral icterus. Oral mucous membrane is dry. No pharyngeal erythema or thrush NECK: Trachea central, no thyromegaly. LUNGS: Unlabored breathing. Clear to auscultation anteriorly. No wheeze or crackle. HEART: S1, S2, regular rate and rhythm. No loud murmur ABDOMEN: Soft, no tenderness , guarding or rigidity, no organomegaly EXTREMITIES: No edema of feet. Right is currently with no swelling no redness on the range of motion no open wound SKIN: No rash, no masses palpable. NEUROLOGICAL: The patient is awake, alert, oriented x3, mood and affect normal. Results CBC & Chem 7: 11/10/19 07:57 11/10/19 07:57 Labs: Abnormal Lab Results - Last 24 Hours (Table) 11/09/19 11/09/19 11/10/19 Range/Units 17:54 17:54 07:22 WBC 13.8 H (3.8-10.6) k/uL Neutrophils # 10.0 H (1.3-7.7) k/uL ESR 47 H (0-20) mm/hr Potassium 3.4 L (3.5-5.1) mmol/L Chloride (98-107) mmol/L BUN 26 H (7-17) mg/dL Glucose 235 H (74-99) mg/dL POC Glucose (mg/dL) 232 H (75-99) mg/dL Calcium (8.4-10.2) mg/dL C-Reactive Protein 47.3 H (<10.0) mg/L Total Protein 6.2 L (6.3-8.2) g/dL 11/10/19 11/10/19 11/10/19 Range/Units 07:57 07:57 11:45 WBC (3.8-10.6) k/uL Neutrophils # 8.3 H (1.3-7.7) k/uL ESR (0-20) mm/hr Potassium (3.5-5.1) mmol/L Chloride 108 H (98-107) mmol/L BUN 28 H (7-17) mg/dL Glucose 235 H (74-99) mg/dL POC Glucose (mg/dL) 320 H (75-99) mg/dL Calcium 8.3 L (8.4-10.2) mg/dL C-Reactive Protein (<10.0) mg/L Total Protein (6.3-8.2) g/dL Assessment and Plan Assessment: 1- patient with abrupt onset of right wrist pain possible inflammatory arthritis clinically not behaving as septic arthritis in this patient who did not have any fever no redness with slight or tenderness and the patient clinically improved very quickly possibly from steroids and not from antibiotics Plan: 1- as patient is insisting on going home and low clinical suspicion for septic arthritis recommend to discontinue the vancomycin 2-short course of steroids per the admitting team Thank you for this consultation. Plan of care was discussed with admitting physician working on discharge Time with Patient: Greater than 30
== END 2019-11-10 13:27 | disposition home or self-care (01) ==
LOC: EC 16:33 → 4SSUR 18:45
PROVIDERS: ADMIT Internal Medicine; ATTEND Internal Medicine
DX: M19.031 Primary osteoarthritis, right wrist (principal); E11.9 Type 2 diabetes mellitus without complications; I10 Essential (primary) hypertension; M10.9 Gout, unspecified; D68.9 Coagulation defect, unspecified; R79.82 Elevated C-reactive protein (CRP); N39.0 Urinary tract infection, site not specified; N13.30 Unspecified hydronephrosis; M19.90 Unspecified osteoarthritis, unspecified site; Z88.8 Allergy status to other drugs, medicaments and biological substances; Z79.899 Other long term (current) drug therapy; Z79.84 Long term (current) use of oral hypoglycemic drugs; Z79.891 Long term (current) use of opiate analgesic; Z91.048 Other nonmedicinal substance allergy status; Z90.49 Acquired absence of other specified parts of digestive tract; Z87.440 Personal history of urinary (tract) infections; Z83.2 Family history of diseases of the blood and blood-forming organs and certain disorders involving the immune mechanism; Z82.49 Family history of ischemic heart disease and other diseases of the circulatory system; Z83.3 Family history of diabetes mellitus; Z11.59 Encounter for screening for other viral diseases
CPT/HCPCS: 96365; 96366; 96372; 96376; 96375; 99284; 80053; 80048; 85652; 84550; 85025 ×2; 86140; 86431; 87040; 86038; 73110; G0378 ×2; U0003; J3370 ×2; J1644; J2930; J2405; J0692; J2270; 36415

== ENCOUNTER 2021-01-15 19:12 | Emergency (ER) | payer MEDICARE ==
[2021-01-15 19:19] VITALS: BP 172/103; PULSE 83; RESP 18; TEMP 99.1
--- NOTE | 2021-01-15 19:53 | ED ---
Extremity Problem HPI - General Chief complaint: Extremity Problem,Nontraumatic Stated complaint: Lt Knee Swelling Time Seen by Provider: 01/15/21 19:41 Source: patient, EMS Mode of arrival: wheelchair Limitations: no limitations - History of Present Illness Initial comments: 75-year-old well-appearing white female patient presents to the emergency room with complaints of left knee pain. Patient states that she was in the garage getting out of her car and she got her feet twisted falling out of the car onto her left side. She states that she twisted her knee and has had pain and swelling ever since. She states that Tylenol does help somewhat but immobilization and elevation seems to be the best. There is significant swelling and she was told in the past that she does need to have a knee surgery. She states that she has been able to bear some weight. MD Complaint: extremity pain, extremity swelling, joint swelling (Left knee) -: days(s) (2) Location: left, lower extremity, knee History of Same: No Severity scale (1-10): 5 Quality: aching Consistency: constant Improves with: immobilization, other (Tylenol) Worsens with: weight bearing, palpation Associated Symptoms: denies other symptoms - Related Data Home Medications Medication Instructions Recorded Confirmed Atorvastatin [Lipitor] 40 mg PO DAILY 01/24/18 11/09/19 Glimepiride [Amaryl] 4 mg PO BID 01/24/18 11/09/19 Latanoprost Ophth [Xalatan 0.005%] 1 drop BOTH EYES HS 01/24/18 11/09/19 allopurinoL [Zyloprim] 100 mg PO DAILY 01/24/18 11/09/19 atenoloL 25 mg PO DAILY 01/24/18 11/09/19 metFORMIN HCL [Glucophage] 500 mg PO TID 01/24/18 11/09/19 Etodolac [Lodine] 400 mg PO BID 11/09/19 11/09/19 traMADol HCL 50 mg PO BID PRN 11/09/19 11/09/19 Previous Rx's Medication Instructions Recorded lisinopriL [Zestril] 5 mg PO DAILY #90 tab 01/28/18 cephALEXin [Keflex] 500 mg PO BID #4 cap 11/10/19 Allergies Allergy/AdvReac Type Severity Reaction Status Date / Time ibuprofen Allergy Anaphylaxis Verified 01/15/21 19:19 pine AdvReac headaches Uncoded 01/15/21 19:19 Review of Systems ROS Statement: Those systems with pertinent positive or pertinent negative responses have been documented in the HPI. ROS Other: All systems not noted in ROS Statement are negative. Past Medical History Past Medical History: Diabetes Mellitus Additional Past Medical History / Comment(s): clotting disorder History of Any Multi-Drug Resistant Organisms: None Reported Past Surgical History: Cholecystectomy, Hernia Repair, Tubal Ligation Additional Past Surgical History / Comment(s): carpel tunnel, stent placed in right kidney and then removed Past Anesthesia/Blood Transfusion Reactions: Postoperative Nausea & Vomiting (PONV) Date of Last Stent Placement:: 2017 Past Psychological History: No Psychological Hx Reported Smoking Status: Current every day smoker Past Alcohol Use History: None Reported Past Drug Use History: None Reported - Past Family History Sister(s) Family Medical History: Blood Disorder Additional Family Medical History / Comment(s): thrombosis disorder Father Family Medical History: Coronary Artery Disease (CAD) Mother Family Medical History: Diabetes Mellitus General Exam Limitations: no limitations General appearance: alert, in no apparent distress Head exam: Present: atraumatic, normocephalic, normal inspection Eye exam: Present: normal appearance, PERRL, EOMI. Absent: scleral icterus, conjunctival injection, periorbital swelling ENT exam: Present: normal exam, mucous membranes moist Neck exam: Present: normal inspection, full ROM Respiratory exam: Present: normal lung sounds bilaterally. Absent: respiratory distress, wheezes, rales, rhonchi, stridor Cardiovascular Exam: Present: regular rate, normal rhythm, normal heart sounds. Absent: systolic murmur, diastolic murmur, rubs, gallop, clicks GI/Abdominal exam: Present: soft, normal bowel sounds. Absent: distended, tenderness, guarding, rebound, rigid Left Knee exam: Present: tenderness, swelling, effusion. Absent: ecchymosis, erythema Neurovascular tendon exam: Present: no vascular compromise. Absent: abnormal cap refill, extremity cold to touch, pallor Back exam: Absent: tenderness Neurological exam: Present: alert, oriented X3, CN II-XII intact Psychiatric exam: Present: normal affect, normal mood Skin exam: Present: warm, dry, intact, normal color. Absent: rash, cyanosis, diaphoretic Course Vital Signs 01/15/21 19:15 Temperature 99.1 F Pulse Rate 83 Respiratory 18 Rate Blood Pressure 172/103 O2 Sat by Pulse 99 Oximetry Medical Decision Making - Medical Decision Making X-ray of the left knee shows osteoarthritis. There is mild knee joint effusion. An Rigo wrap was applied and she was directed to follow up with orthopedics. She was given some Tylenol threes at discharge for pain and directed to rest, ice and elevate at home. Disposition Clinical Impression: Knee pain Disposition: HOME SELF-CARE Condition: Good Instructions (If sedation given, give patient instructions): Swollen Knee Joint (ED), Knee Pain (ED) Additional Instructions: Rest, ice, elevate knee. Take Tylenol as needed for pain. Follow-up with orthopedics next week. Return if any new or worsening symptoms including increased pain or fevers. Is patient prescribed a controlled substance at d/c from ED?: No Referrals: Mary Schwab MD [Primary Care Provider] - 1-2 days Mike Perez PAC [PHYSICIAN PARACHUTIST/COMBATANT DIVER QUALIFIED] - 1-2 days Time of Disposition: 21:29
[2021-01-15] MEDS ORDERED: HYDROcodone/APAP 5-325MG 1 EACH TAB PO STA (20:22)
--- NOTE | 2021-01-15 20:41 | XR ---
EXAMINATION TYPE: XR knee complete LT DATE OF EXAM: 01/15/2021 COMPARISON: NONE HISTORY: Fall. Knee pain TECHNIQUE: 3 views FINDINGS: There is spurring of the medial femoral and tibial condyles. There is spurring on the gaines la. There is small knee joint effusion. There is mild narrowing of the medial joint space. IMPRESSION: Osteoarthritis. Small knee joint effusion. No fracture seen.
[2021-01-15] MEDS ORDERED: ACET/COD 300 MG/30 MG STARTER PACK 6 TAB BTL PO STA (21:35)
== END 2021-01-15 21:44 | disposition home or self-care (01) ==
LOC: EC 19:12
DX: M25.562 Pain in left knee (principal); M79.89 Other specified soft tissue disorders; E11.9 Type 2 diabetes mellitus without complications; F17.200 Nicotine dependence, unspecified, uncomplicated; Z79.84 Long term (current) use of oral hypoglycemic drugs
CPT/HCPCS: 99283

== ENCOUNTER → 2024-06-23 | Day surgery (SDC) | payer MEDICARE ==
[~2024-06-23] MED LIST changes: +ALPRAZolam 0.25 MG TAB PO PRN; +ALPRAZolam 0.5 MG TAB PO PRN; -DEXAMETHASONE SOD PHOSPHATE 10 MG/ML 1 ML VIAL IV ONE; +HEPARIN SODIUM,PORCINE (1 ML) 2,500 UNIT in SODIUM CHLORIDE 0.9% 250 ML IRRIGATION PRN; +HEPARIN SODIUM,PORCINE 10,000 UNIT in SODIUM CHLORIDE 0.9% 1,000 ML IRRIGATION PRN; -HEPARIN SODIUM,PORCINE 5,000 UNIT/ML 1 ML VIAL SQ ONE; -HYDROmorphone 0.5 MG/0.5 ML SYRINGE IVP PRN; -LACTATED RINGERS 1,000 ML IV SCH; -LIDOCAINE 1% (10MG/ML) FOR IV START INTRADERMA PRN; -MIDAZOLAM 2 MG/2 ML VIAL IV PRN; +NALOXONE 0.4 MG/ML 1 ML VIAL IVP PRN; -ONDANSETRON 4 MG/2 ML VIAL IVP ONE; +ZOLPIDEM 5 MG TAB PO PRN; +atenoloL 25 MG TAB PO SCH; -fentaNYL (PF) 50 MCG/ML 2 ML AMP IVP PRN
[2024-06-23] MEDS: EMPTY BAG 1 BAG with SODIUM CHLORIDE 0.9% 1,000 ML IV SCH (07:31)
[2024-06-23 07:32] LABS: Glucose,Whole Blood 115 mg/dL (70-110)
[2024-06-23] MEDS: IV FLUID CONTINUATION 1,000 ML IV ONE (07:37)
[2024-06-23 07:40] LABS: Basophils # (A) 0.1 k/uL (0-0.2); Basophils % (A) 1 %; Eosinophils # (A) 0.8 k/uL (0-0.7); Eosinophils % (A) 7 %; Lymphocytes # (A) 2.5 k/uL (1.0-4.8); Lymphocytes % (A) 22 %; MCH 32.4 pg (25.0-35.0); MCHC 33.3 g/dL (31.0-37.0); MCV 97.1 fL (80.0-100.0); Monocytes # (A) 0.8 k/uL (0-1.0); Monocytes % (A) 7 %; Neutrophils # (A) 7.1 k/uL (1.3-7.7); Neutrophils % (A) 62 %; Platelet Count 166 k/uL (150-450); RBC 4.33 m/uL (3.80-5.40); RDW 13.3 % (11.5-15.5); WBC 11.5 k/uL (3.8-10.6)
[2024-06-23 07:55] LABS: African American GFR (CKD) 69 (>60 ml/min/1.73 sqM); Anion Gap 6 mmol/L; Blood Urea Nitrogen 23 mg/dL (7-17); Calcium 8.7 mg/dL (8.4-10.2); Carbon Dioxide 30 mmol/L (22-30); Chloride 104 mmol/L (98-107); Glucose 110 mg/dL (74-99); Non-African American GFR(CKD) 60 (>60 ml/min/1.73 sqM); Potassium 3.6 mmol/L (3.5-5.1); Sodium 140 mmol/L (137-145)
[2024-06-23 08:05] VITALS: RESP 16; TEMP 98.3
[2024-06-23] MEDS: amLODIPine 5 MG TAB PO SCH (08:12)
[2024-06-23] MEDS: carvediloL 6.25 MG TAB PO SCH (08:22)
[2024-06-23] MEDS: lisinopriL 5 MG TAB PO SCH (08:22)
[2024-06-23] MEDS: MIDAZOLAM 2 MG/2 ML VIAL IVP ONE (09:52)
[2024-06-23] MEDS: fentaNYL (PF) 50 MCG/ML 2 ML AMP IVP ONE (09:52)
[2024-06-23] MEDS: LIDOCAINE 1% INJ 10MG/ML (20 ML MDV) SQ ONE (09:54)
[2024-06-23] MEDS: HEPARIN SODIUM,PORCINE 10,000 UNIT in SODIUM CHLORIDE 0.9% 1,000 ML IRRIGATION ONE (09:59)
[2024-06-23] MEDS: IOPAMIDOL-370 100ML BTL INJ ONE (10:02)
--- NOTE | 2024-06-23 10:09 | P.PCN ---
Date of Procedure: 06/23/24 Operative Findings: AN ABDOMINAL AORTOGRAM AND BILATERAL LOWER EXTREMITIES RUNOFF PERFORMING PHYSICIAN: Artie Camacho MD PROCEDURE PERFORMED: 1. An abdominal aortogram 2. Bilateral lower extremities runoff 3. Ultrasound-guided access of the right common femoral artery INDICATION: Symptomatic 79-year-old female patient with abnormal arterial duplex study COMPLICATION: None LEVEL OF SEDATION: Moderate was sedation length of 10 minutes APPROACH: Right common femoral artery PROCEDURE DESCRIPTION: After obtaining informed consent and explaining the procedure benefits, risks, and complications, the patient was brought to the cardiac qc lab technician. The right groin was prepped and draped in sterile fashion. The right common femoral artery was cannulated using micropuncture technique, under ultrasound guidance. A micropuncture wire was advanced, and the micropuncture sheath was advanced over the wire, then the micropuncture sheath was exchanged over an 0.35 wire into a 5-[place] Islander sheath dilator assembly then the wire and dilator were removed and sheath was flushed. We did an abdominal aortogram and bilateral lower extremities runoff using 5- [place] Islander pigtail catheter using a power injection. The catheter was initially placed at the level of the renal arteries, and it was pulled into above the b ifurcation of the aorta into right and left common iliac arteries. The procedure was completed and there was no complications. SELECTIVE PERIPHERAL ANGIOGRAM: The abdominal aorta: Calcified with mild disease only The common iliac arteries: Calcified with mild disease only The external iliac arteries: The left external iliac artery has intermediate lesion appears to be in the range of 60% The internal iliac arteries: Both are patent The common femoral arteries: Appears to have mild disease only Superficial femoral arteries: Both SFA are occluded on long segment extends from the ostium all the way to the popliteal Popliteal arteries: Appears to have severe disease bilaterally Below the knees: There is only 1 vessel runoff bilaterally with anterior tibial artery CONCLUSION: Intermediate lesion involving the left external iliac artery Occluded bilateral SFA Anterior tibialis artery runoff on both sides POSTPROCEDURE MANAGEMENT: Discussed the options of revascularization
[2024-06-23] MEDS: hydrALAZINE HCL 20 MG/ML 1 ML VIAL IVP STA (10:28)
[2024-06-23] MEDS: SODIUM CHLORIDE 0.9% 1,000 ML in EMPTY BAG 1 BAG IV SCH (10:28)
--- NOTE | 2024-06-23 10:40 | IR ---
Fluoroscopy INDICATION: Pain FINDINGS: Fluoroscopy time: 1.7 minutes Total dose area product (DAP) in uGy*m?, mGy*cm? (or similar): 1.65 Images obtained: 119. Images document an aortic runoff IMPRESSION: 1. Documentation of fluoroscopy. [facility], , 06/23/2024 10:38 AM
[2024-06-23 14:04] VITALS: BP 153/63; PULSE 69
== END ==
LOC: CATHCVL 06:59
PROVIDERS: ATTEND Internal Medicine Interventional Cardiology
DX: E11.51 Type 2 diabetes mellitus with diabetic peripheral angiopathy without gangrene (principal); I70.223 Atherosclerosis of native arteries of extremities with rest pain, bilateral legs; I25.10 Atherosclerotic heart disease of native coronary artery without angina pectoris; Z95.5 Presence of coronary angioplasty implant and graft; I10 Essential (primary) hypertension; E78.2 Mixed hyperlipidemia; I08.3 Combined rheumatic disorders of mitral, aortic and tricuspid valves; F17.210 Nicotine dependence, cigarettes, uncomplicated; Z79.82 Long term (current) use of aspirin; Z79.84 Long term (current) use of oral hypoglycemic drugs; Z79.899 Other long term (current) drug therapy; Z88.6 Allergy status to analgesic agent; Z88.0 Allergy status to penicillin; Z88.8 Allergy status to other drugs, medicaments and biological substances; Z82.49 Family history of ischemic heart disease and other diseases of the circulatory system
CPT/HCPCS: 36200; 75625; 75716; 76937; 80048; 85025; C1769 ×2; C1894; J2250; J0360; J1644; J2003; J3010; Q9967

== ENCOUNTER 2024-08-02 05:47 | Day surgery (SDC) | payer MEDICARE ==
[2024-08-02] MEDS ORDERED: HEPARIN SODIUM,PORCINE 10,000 UNIT in SODIUM CHLORIDE 0.9% 1,000 ML IRRIGATION PRN (05:48)
[2024-08-02] MEDS ORDERED: ZOLPIDEM 5 MG TAB PO PRN (05:48)
[2024-08-02] MEDS ORDERED: ALPRAZolam 0.25 MG TAB PO PRN (05:48)
[2024-08-02] MEDS ORDERED: HEPARIN SODIUM,PORCINE (1 ML) 2,500 UNIT in SODIUM CHLORIDE 0.9% 250 ML IRRIGATION PRN (05:48)
[2024-08-02] MEDS ORDERED: ALPRAZolam 0.5 MG TAB PO PRN (05:48)
[2024-08-02] MEDS: IV FLUID CONTINUATION 1,000 ML IV ONE (06:08)
[2024-08-02] MEDS: EMPTY BAG 1 BAG with SODIUM CHLORIDE 0.9% 1,000 ML IV SCH (06:08)
[2024-08-02 06:21] LABS: Glucose,Whole Blood 95 mg/dL (70-110)
[2024-08-02 06:27] LABS: Basophils # (A) 0.1 k/uL (0-0.2); Basophils % (A) 1 %; Eosinophils # (A) 0.7 k/uL (0-0.7); Eosinophils % (A) 7 %; HCT 45.4 % (34.0-46.0); HGB 14.5 gm/dL (11.4-16.0); Lymphocytes # (A) 2.9 k/uL (1.0-4.8); Lymphocytes % (A) 30 %; MCH 31.1 pg (25.0-35.0); MCHC 31.9 g/dL (31.0-37.0); MCV 97.4 fL (80.0-100.0); Mean Platelet Volume 8.8; Monocytes # (A) 0.7 k/uL (0-1.0); Monocytes % (A) 7 %; Neutrophils # (A) 5.2 k/uL (1.3-7.7); Neutrophils % (A) 54 %; Platelet Count 156 k/uL (150-450); RBC 4.65 m/uL (3.80-5.40); RDW 13.6 % (11.5-15.5); WBC 9.7 k/uL (3.8-10.6)
[2024-08-02 06:38] LABS: African American GFR (CKD) 56 (>60 ml/min/1.73 sqM); Anion Gap 9 mmol/L; Blood Urea Nitrogen 29 mg/dL (7-17); Calcium 9.2 mg/dL (8.4-10.2); Carbon Dioxide 27 mmol/L (22-30); Chloride 104 mmol/L (98-107); Glucose 100 mg/dL (74-99); Non-African American GFR(CKD) 49 (>60 ml/min/1.73 sqM); Potassium 4.1 mmol/L (3.5-5.1); Sodium 140 mmol/L (137-145)
[2024-08-02] MEDS: LIDOCAINE 1% INJ 10MG/ML (20 ML MDV) SQ ONE (10:13)
[2024-08-02] MEDS: MIDAZOLAM 2 MG/2 ML VIAL IVP ONE ×2 (10:15→10:22)
[2024-08-02] MEDS: ONDANSETRON 4 MG/2 ML VIAL IVP ONE (10:22)
[2024-08-02] MEDS: HEPARIN SODIUM 1,000 UN/ML (10ML VL) IVP ONE (10:22)
[2024-08-02] MEDS ORDERED: SODIUM CHLORIDE 0.9% 500 ML 500 ML with niCARdipine 6.25 MG, NITROGLYCERIN-D5W PMX 0.05... IV ONE (10:56)
[2024-08-02] MEDS: MORPHINE SULFATE 4 MG/ML SYRINGE IVP ONE (10:56)
[2024-08-02] MEDS: ATROPINE SULFATE 0.1 MG/ML 10ML SYRINGE IVP ONE (11:35)
[2024-08-02] MEDS: IOPAMIDOL-370 100ML BTL INJ ONE ×2 (12:01→12:15)
[2024-08-02] MEDS: CLOPIDOGREL 75 MG TAB PO ONE (12:06)
[2024-08-02] MEDS: NITROGLYCERIN 1000MCG/10ML SYRINGE INTRAARTER ONE (12:14)
[2024-08-02] MEDS: niCARdipine Syringe (1,000 mcg/10 mL) INTRAARTER ONE (12:14)
[2024-08-02] MEDS ORDERED: NALOXONE 0.4 MG/ML 1 ML VIAL IVP PRN (12:30)
--- NOTE | 2024-08-02 12:40 | P.PCN ---
Date of Procedure: 08/02/24 Operative Findings: PERCUTANEOUS PERIPHERAL INTERVENTION Performing physician Artie Camacho M.D. Procedure performed 1. Successful angioplasty and stenting of the left SFA 2. Successful angioplasty and stenting of the left external iliac artery 3. Adjunctive use of IVUS and atherectomy using the Hawk 1 device 4. Left lower extremity angiogram 5. Right common femoral artery angiogram 6. Ultrasound-guided access of the right common femoral artery and left anterior tibial artery Indication Symptomatic 79-year-old female patient who underwent an angiogram and that revealed occluded left SFA and severe disease involving the left external iliac artery Approach Right common femoral artery and left anterior tibial artery Complications None Level of sedation Moderate with a sedation time of [] minutes Procedure description After obtaining informed consent the patient was brought to the cardiac Quarter Doper. The right common femoral artery was cannulated using micropuncture technique under ultrasound guidance a micropuncture wire passed easily then I placed a 6 Palau[place] 70 cm sheath at the right common femoral artery over a 035 stiff Glidewire. After that I did advance a 5 Palau[place] rim catheter to the left common iliac artery and then I advanced an 035 stiff wire to the left profunda. Subsequently the 6 Palau[place] 70 cm sheath was advanced over the wire and the catheter all the way to the left common femoral artery. Left lower extremity angiogram was performed and showed occluded left SFA on long segment extends from the ostium all the way to the left popliteal. Attempting crossing the HARDNESS INSPECTOR in antegrade technique was unsuccessful. It was successful in retrograde technique using slender 5/6 Palauan sheath placed in the left anterior tibial artery and subsequently I was able to cross the HARDNESS INSPECTOR in ipsilateral retrograde fashion using a 018 gold into the wire with the backup support of 018 CXI catheter. Subsequently the wire was snared from above using a 6 Palau[place] snare and then I did exchange in [address] [place] wire. IVUS of the left iliac and left SFA was performed. Subsequently I did atherectomy of the left SFA only the distal portion because the mid and proximal portion I was in subintimal space. The IVUS revealed a diameter of the left SFA around 5 mm and the left iliac ab out 9 mm. I did after that atherectomy using the Hawk 1 device of the left SFA before I did angioplasty using 5 mm long Mariela balloon and that revealed a dissection involving the mid to distal portion but no dissection flow-limiting was identified in the proximal portion. For the mid to distal left SFA I did deploy 6 mm x 140 mm Zilver PTX drug-coated stent where the stent was positioned under fluoroscopy guidance and deployed under fluoroscopy guidance and dilated using 5 mm balloon. Angiogram showed good angiographic results and for the proximal left SFA I did drug-coated balloon using 5 mm x 80 mm balloon. Final angiogram of the left SFA showed good angiographic results. After that IVUS of the left external iliac artery was performed after angiogram was performed and showed a diameter around 9 mm so I deployed 10 mm x 40 mm self-expandable stent which was postdilated using 9 mm balloon with final angiogram showing excellent angiographic results as well and the procedure was completed with no complication. I did selective right common femoral artery angiogram by the end after I exchanged my long sheath into short sheath using 035 stiff Glidewire and the patient tolerated the procedure very well except for an episode of sinus bradycardia secondary to vasovagal resolved completely Postprocedure management 1. Dual antiplatelet therapy 2. Aggressive cholesterol control 3. Risk factors modification 4. Follow-up with the patient
[2024-08-02] MEDS: hydrALAZINE HCL 20 MG/ML 1 ML VIAL IVP STA ×2 (13:17→13:35)
--- NOTE | 2024-08-02 14:13 | IR ---
EXAMINATION TYPE: IR stent intravas non coronary DATE OF EXAM: 08/02/2024 FLUOROSCOPY leg pain, 37.4m 18.0DAP, Rt gr sheath sutured in at lt ped Ordering Artie Ricks Total images: 332. [facility], Workstation: [id number], 08/02/2024 2:11 PM
[2024-08-02] MEDS: ENALAPRILAT 1.25 MG/ML 1 ML VIAL IVP STA (15:31)
[2024-08-02] MEDS: SODIUM CHLORIDE 0.9% 1,000 ML in EMPTY BAG 1 BAG IV SCH (18:09)
[2024-08-02] MEDS: SODIUM CHLORIDE 0.9% 500 ML 500 ML with niCARdipine 6.25 MG, NITROGLYCERIN-D5W PMX 0.05... IV ONE (18:09)
[2024-08-02] MEDS: carvediloL 6.25 MG TAB PO SCH (18:32)
[2024-08-02] MEDS: LATANOPROST 0.005% OPHTH DROPS 2.5 ML BTL BOTH EYES SCH (20:40)
[2024-08-03 06:40] LABS: African American GFR (CKD) 63 (>60 ml/min/1.73 sqM); Non-African American GFR(CKD) 55 (>60 ml/min/1.73 sqM)
--- NOTE | 2024-08-03 08:12 | P.DS ---
Providers Attending physician: Artie Camacho Primary care physician: [facility] Course: The patient is a 79-year-old female patient who underwent yesterday successful CORPORATE AIRCRAFT MECHANIC of the left SFA She was seen and evaluated this morning which she is asymptomatic and hemodynamically stable. The patient will be discharged home later on today on dual antiplatelet therapy and I will follow-up with the patient next week in the office Plan - Discharge Summary Discharge Rx Participant: No New Discharge Prescriptions: New Clopidogrel [Plavix] 75 mg PO DAILY #90 tablet Continue Latanoprost Ophth [Xalatan 0.005%] 1 drop BOTH EYES HS Atorvastatin [Lipitor] 40 mg PO DAILY allopurinoL [Zyloprim] 100 mg PO DAILY lisinopriL [Zestril] 5 mg PO DAILY #90 tab Aspirin 81 mg PO DAILY carvediloL [Coreg] 6.25 mg PO BID Multivit-Min/Iron/Folic/Lutein [Centrum Silver Women Tablet] 1 each PO DAILY amLODIPine BESYLATE 5 mg PO DAILY Discontinued metFORMIN HCL [Glucophage] 500 mg PO DAILY Discharge Medication List Atorvastatin [Lipitor] 40 mg PO DAILY 01/24/18 [History] Latanoprost Ophth [Xalatan 0.005%] 1 drop BOTH EYES HS 01/24/18 [History] allopurinoL [Zyloprim] 100 mg PO DAILY 01/24/18 [History] lisinopriL [Zestril] 5 mg PO DAILY #90 tab 01/28/18 [Rx] Aspirin 81 mg PO DAILY 06/21/24 [History] Multivit-Min/Iron/Folic/Lutein [Centrum Silver Women Tablet] 1 each PO DAILY 06/21/24 [History] amLODIPine BESYLATE 5 mg PO DAILY 06/21/24 [History] carvediloL [Coreg] 6.25 mg PO BID 06/21/24 [History] Clopidogrel [Plavix] 75 mg PO DAILY #90 tablet 08/03/24 [Rx] Follow up Appointment(s)/Referral(s): Artie Camacho MD [STAFF PHYSICIAN] - 1 Week
[2024-08-03 09:01] VITALS: BP 167/69; PULSE 66; RESP 17; TEMP 98.1
[2024-08-03] MEDS: allopurinoL 100 MG TAB PO SCH (09:05)
[2024-08-03] MEDS: lisinopriL 5 MG TAB PO SCH (09:05)
[2024-08-03] MEDS: ATORVASTATIN 40 MG TAB PO SCH (09:05)
[2024-08-03] MEDS: ASPIRIN 81 MG PO SCH (09:05)
[2024-08-03] MEDS: amLODIPine 5 MG TAB PO SCH (09:05)
[2024-08-03] MEDS: MULTIVITAMINS, THERA 1 EACH TAB PO SCH (09:05)
== END 2024-08-03 09:48 | disposition home or self-care (01) ==
LOC: CATHCVL 05:47 → 6NMEDSUR 12:20 → CATHCVL 08-03 09:48
PROVIDERS: ATTEND Internal Medicine Interventional Cardiology
DX: I25.10 Atherosclerotic heart disease of native coronary artery without angina pectoris (principal); I73.9 Peripheral vascular disease, unspecified; I10 Essential (primary) hypertension; Z95.5 Presence of coronary angioplasty implant and graft; F17.200 Nicotine dependence, unspecified, uncomplicated; E78.2 Mixed hyperlipidemia; Z79.82 Long term (current) use of aspirin; Z79.84 Long term (current) use of oral hypoglycemic drugs; Z79.02 Long term (current) use of antithrombotics/antiplatelets; Z88.1 Allergy status to other antibiotic agents
CPT/HCPCS: 80048; 82565; 85025; 37224; 37227; 37221; C1894 ×3; C1773; C1876; C1725; C1769 ×3; C1714; C1753; C1874; C2623; J2250; J2270; J0360; J2405; J2003; J0461; J1644; Q9967; J2305; 37252; 37253; 76937

== ENCOUNTER 2024-08-24 21:05 | Emergency (ER) | payer MEDICARE ==
[2024-08-24 21:12] VITALS: TEMP 97.8
[2024-08-24] MEDS: ACETAMINOPHEN TAB 500 MG TAB PO STA (22:08)
[2024-08-24 22:23] LABS: Basophils # (A) 0.04 10*3/uL (0.00-0.10); Basophils % (A) 0.4 %; Eosinophils # (A) 0.24 10*3/uL (0.04-0.35); Eosinophils % (A) 2.5 %; HCT 37.6 % (37.2-46.3); HGB 12.9 g/dL (12.0-15.0); Lymphocytes # (A) 2.63 10*3/uL (0.90-5.00); Lymphocytes % (A) 27.3 %; MCHC 34.3 g/dL (32.0-37.0); MCV 93.3 fL (80.0-97.0); Mean Platelet Volume 11.1 fL (9.5-12.2); Monocytes # (A) 1.23 10*3/uL (0.20-1.00); Monocytes % (A) 12.8 %; Neutrophils # (A) 5.46 10*3/uL (1.80-7.70); Neutrophils % (A) 56.7 %; Platelet Count 171 10*3/uL (140-440); RBC 4.03 10*6/uL (4.10-5.20); RDW 13.5 % (11.5-14.5); WBC 9.63 10*3/uL (4.50-10.00)
[2024-08-24 22:36] LABS: ALT 12 U/L (4-34); AST 18 U/L (14-36); African American GFR (CKD) 61 (>60 ml/min/1.73 sqM); Albumin 3.5 g/dL (3.5-5.0); Alkaline Phosphatase 89 U/L (38-126); Anion Gap 7 mmol/L; Blood Urea Nitrogen 27 mg/dL (7-17); Calcium 9.3 mg/dL (8.4-10.2); Carbon Dioxide 30 mmol/L (22-30); Chloride 102 mmol/L (98-107); Glucose 110 mg/dL (74-99); Non-African American GFR(CKD) 53 (>60 ml/min/1.73 sqM); Potassium 4.1 mmol/L (3.5-5.1); Sodium 139 mmol/L (137-145); Total Bilirubin 0.8 mg/dL (0.2-1.3); Total Protein 6.2 g/dL (6.3-8.2)
--- NOTE | 2024-08-24 22:41 | ED ---
General Adult HPI - General Chief complaint: Extremity Injury, Lower Stated complaint: Fall L Injury Source: patient Mode of arrival: wheelchair Limitations: no limitations - History of Present Illness Initial comments: Patient is a pleasant 79 y/o female presenting today for LLE swelling. States that she recently had two stents placed in her LLE and one in her right by Dr. Camacho about 2 weeks ago. 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 SHe has been attempting to rest and elevate her leg without improvement. She does not feel like anything is broken and is still able to ambulate with a walker. She is concerned that there was damage to her stents from her fall. Is currently on DAPT with plavix and ASA and is taking medications as prescribed. She denies redness, fevers, shortness of breath, chest pain, new numbness. No cyanosis or pallor. Pain is predominantly behind her left knee and feels "tight". - Related Data Home Medications Medication Instructions Recorded Confirmed Atorvastatin [Lipitor] 40 mg PO DAILY 01/24/18 07/31/24 Latanoprost Ophth [Xalatan 0.005%] 1 drop BOTH EYES HS 01/24/18 08/02/24 allopurinoL [Zyloprim] 100 mg PO DAILY 01/24/18 08/02/24 Aspirin 81 mg PO DAILY 06/21/24 08/02/24 Multivit-Min/Iron/Folic/Lutein 1 each PO DAILY 06/21/24 07/31/24 [Centrum Silver Women Tablet] amLODIPine BESYLATE 5 mg PO DAILY 06/21/24 08/02/24 carvediloL [Coreg] 6.25 mg PO BID 06/21/24 08/02/24 Previous Rx's Medication Instructions Recorded lisinopriL [Zestril] 5 mg PO DAILY #90 tab 01/28/18 Clopidogrel [Plavix] 75 mg PO DAILY #90 tablet 08/03/24 Furosemide [Lasix] 20 mg PO DAILY 14 Days #14 tab 08/24/24 Allergies Allergy/AdvReac Type Severity Reaction Status Date / Time ibuprofen Allergy Anaphylaxis Verified 08/24/24 21:12 pine AdvReac headaches Uncoded 08/24/24 21:12 Review of Systems ROS Statement: Those systems with pertinent positive or pertinent negative responses have been documented in the HPI. ROS Other: All systems not noted in ROS Statement are negative. 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 on left History of Any Multi-Drug Resistant Organisms: None Reported Past Surgical History: Cholecystectomy, Hernia Repair, Tubal Ligation Additional Past Surgical History / Comment(s): carpel tunnel, stent placed in right kidney and then removed, recent aortogram Past Anesthesia/Blood Transfusion Reactions: No Reported Reaction Date of Last Stent Placement:: 2017 Past Psychological History: No Psychological Hx Reported Smoking Status: Current every day smoker Past Alcohol Use History: None Reported Past Drug Use History: Marijuana - Past Family History Sister(s) Family Medical History: Blood Disorder Additional Family Medical History / Comment(s): thrombosis disorder Father Family Medical History: Coronary Artery Disease (CAD) Mother Family Medical History: Diabetes Mellitus General Exam - General Exam Comments Initial Comments: PE: CONSTITUTIONAL: [no apparent distress, well appearing] SKIN: [warm, dry, no jaundice, hives or petechiae. LLE is warm and well perfused, no bruising, abrasions, pallor or cyanosis or rashes. Scars from vascular access sites are well healed without signs of infection] EYES:[ pupils are equally round, extraocular movements intact without nystagmus, clear conjunctiva, non-icteric sclera] HENT: [normocephalic, atraumatic, moist mucus membranes, oropharynx clear without exudates] NECK: , [Full range of motion, normal appearance] PULMONARY: [clear to auscultation without wheezes, rhonchi, or rales, normal excursion, no accessory muscle use and no stridor] CARDIOVASCULAR:[ regular rate, rhythm, normal S1 and S2. No appreciated murmurs, rubs or gallops. Strong radial and bilateral DP pulses with intact distal perfusion. Cap refill in LLE is <2 s. 2+ LLE pitting edema extending up to knee ] GASTROINTESTINAL: [soft, active bowel sounds throughout, non-tender, non- distended, no palpable masses, no rebound or guarding. No hepatosplenomegaly] MUSCULOSKELETAL: [Extremities have no gross deformity, No calf swelling, no venous prominence in affected leg, no bony TTP, able to flex hip and knee to 90 degrees without difficulty or pain, though has difficulty flexing left knee beyond this 2/2 swelling/tightness, left ankle and foot are nontender to palpation, able to range through full ROM without pain or deficit, no signs of trauma] NEUROLOGIC: [_a/o x 3, GCS 15, normal mentation and speech. Moves all extremitie s x 4 without motor or sensory deficit] PSYCHIATRIC:[ _normal mood and affect, thought process is clear and linear] Limitations: no limitations Course Vital Signs 08/24/24 08/25/24 21:06 02:14 Temperature 97.8 F Pulse Rate 60 59 L Respiratory 16 17 Rate Blood Pressure 169/93 137/67 O2 Sat by Pulse 96 97 Oximetry Medical Decision Making - Medical Decision Making Was pt. sent in by a medical professional or institution (, PA, MANAGER FLIGHT, urgent care, hospital, or [facility]...) When possible be specific @ -No Did you speak to anyone other than the patient for history (EMS, parent, family, police, friend...)? What history was obtained from this source @ -No Did you review nursing and triage notes (agree or disagree)? Why? @ -I reviewed nursing and triage notes Were old charts reviewed (outside hosp., previous admission, EMS record, old EKG, old radiological studies, urgent care reports/EKG's, [facility] records)? Report findings @ -Medical records reviewed- Reviewed procedure note from Dr. Camacho, for patient's stent placement on 08/04/2024, and it appears patient had angioplasty and stenting of the left superficial femoral artery, angioplasty and stenting of the left external iliac artery with ultrasound-guided access of the right common femoral artery and left anterior tibial artery Differential Diagnosis (chest pain, altered mental status, abdominal pain women, abdominal pain men, vaginal bleeding, weakness, fever, dyspnea, syncope, headache, dizziness, GI bleed, back pain, seizure, CVA, palpatations, mental health, musculoskeletal)? @Differential Musculoskeletal Muscular strain, contusion, ligament sprain, fracture, arthritis, septic arthritis, bursitis, cellulitis, muscle spasm, nerve compression, DVT, arterial occlusion, herpes zoster, electrolyte abnormality, tumor.... This is not meant to be in all inclusive list EKG interpreted by me (3pts min.). @ -As above X-rays interpreted by me (1pt min.). @ -Personally reviewed x-ray of the left lower extremity, I see no evidence of fracture or dislocation, I agree with radiologist interpretation CT interpreted by me (1pt min.). @ -None done U/S interpreted by me (1pt. min.). @Personally reviewed ultrasound venous of the left lower extremity, I see no evidence of venous occlusion I agree with radiologist interpretation What testing was considered but not performed or refused? (CT, X-rays, U/S, labs)? Why? @CT angiogram of the left lower extremity was considered to ensure stent patency however patient has history of kidney disease, left lower extremity is well-per fused, and after further discussion with Dr. Camacho, it was agreed that risk outweighed benefit What meds were considered but not given or refused? Why? @ -None Did you discuss the management of the patient with other professionals (professionals i.e. , PA, MANAGER FLIGHT, lab, RT, psych nurse, director of social media marketing, sql dba, teacher, business services officer, mental health case manager)? Give summary @This case was discussed with Dr. Camacho, cardiology, appreciate recommendations and coordination of care. Discussed patient's history, presenting signs and symptoms and physical exam findings with Dr. Camacho, given patient's LLE is appears well perfused and has palpable 2+ DP pulse, does not feel risk of CT contrast outweighs any potential benefit at this point, of which I agree, recommends starting patient on lasix, 20 mg daily to be continued until he sees pt at follow up visit Was smoking cessation discussed for >3mins.? @ -No Was critical care preformed (if so, how long)? @ -No Were there social determinants of health that impacted care today? How? (Homelessness, low income, unemployed, alcoholism, drug addiction, transportatio n, low edu. Level, literacy, decrease access to med. care, [facility] [facility], rehab)? @ -No Was there de-escalation of care discussed even if they declined (Discuss DNR or withdrawal of care, Hospice)? @ -No What co-morbidities impacted this encounter? (DM, HTN, Smoking, COPD, CAD, Cancer, CVA, ARF, Chemo, Hep., AIDS, mental health diagnosis, sleep apnea, morbid obesity)? Peripheral vascular disease Was patient admitted / discharged? Hospital course, mention meds given and route, prescriptions, significant lab abnormalities, going to OR and other pertinent info. @Discharged -This is a pleasant 79 y/o female presenting today for LLE edema, appro 2 weeks after vascular stenting and 2 days after mechanical trip and fall. On my assessment patient is resting comfortably, in NAD. Entirety of LLE is visualized, is edematous with ~2 pitting edema, warm, but nonerythematous, skin is well perfused, 2+ DP pulse, sensation intact (w/ exception of pt's chronic neuropathy), <2s cap refill. Pt has excellent ROM and no gross deformity. Discussed with pt plan for venous ultrasound for DVT and plain films knee and tib fib. We discussed obtaining basic labs to assess kidney function should it be decided on that CT angiogram of the extremity is warranted after discussion with Dr. Camacho. Pt agreeable with POC. Pain control with tylenol ordered. Case discussed w/ Dr. Camacho, please see above. Imaging was negative for acute processs and US showed no DVT. Labs reassuring with stable kidney function and no leukocy tosis. Updated pt to findings and plan to start 20 mg lasix daily. Pt agreeable with POC and comfortable with discharge home at this time. In my medical judgment there is currently no evidence of an immediate life- threatening or surgical condition. Discharge is therefore indicated at this time. Discharge treatment instructions, follow up instructions, and appropriate emergency department return precautions were discussed with the patient and/or medical decision maker. Patient and/or medical decision maker expressed understanding of and agreed with the treatment plan, follow up instructions, and emergency department return precaution. All patient's and/or medical decision maker's questions were answered. The patient was instructed to return to the ED for any changes in symptoms, pers istent symptoms, inability to obtain proper follow-up or for any further concerns. Patient received verbal and written instructions for this condition. Undiagnosed new problem with uncertain prognosis? @ -No Drug Therapy requiring intensive monitoring for toxicity (Heparin, Nitro, Insulin, Cardizem)? @ -No Were any procedures done? @ -No Diagnosis/symptom? @ -Left lower extremity edema Acute, or Chronic, or Acute on Chronic? @Acute Uncomplicated (without systemic symptoms) or Complicated (systemic symptoms)? @Uncomplicated Side effects of treatment? @ -No Exacerbation, Progression, or Severe Exacerbation? @ -No Poses a threat to life or bodily function? How? (Chest pain, [place], [place], pneumonia, PE, COPD, DKA, ARF, appy, cholecystitis, CVA, Diverticulitis, Homicidal, Suicidal, threat to staff... and all critical care pts) @ -No - Lab Data Result diagrams: 08/24/24 22:03 08/24/24 22:03 Lab Results 08/24/24 08/24/24 08/24/24 Range/Units 22:03 22:03 22:27 WBC 9.63 (4.50-10.00) 10*3/uL RBC 4.03 L (4.10-5.20) 10*6/uL Hgb 12.9 (12.0-15.0) g/dL Hct 37.6 (37.2-46.3) % MCV 93.3 (80.0-97.0) fL MCH 32.0 (27.0-32.0) pg MCHC 34.3 (32.0-37.0) g/dL Plt Count 171 (140-440) 10*3/uL MPV 11.1 (9.5-12.2) fL Immature Gran % (Auto) 0.3 % Neutrophils % 56.7 % Lymphocytes % 27.3 % Monocytes % 12.8 % Eosinophils % 2.5 % Basophils % 0.4 % Immature Gran # 0.03 (0.00-0.04) 10*3/uL Neutrophils # 5.46 (1.80-7.70) 10*3/uL Lymphocytes # 2.63 (0.90-5.00) 10*3/uL Monocytes # 1.23 H (0.20-1.00) 10*3/uL Eosinophils # 0.24 (0.04-0.35) 10*3/uL Basophils # 0.04 (0.00-0.10) 10*3/uL PT 10.9 (10.0-12.5) sec INR 1.0 (<1.2) APTT 23.3 (22.0-30.0) sec Sodium 139 (137-145) mmol/L Potassium 4.1 (3.5-5.1) mmol/L Chloride 102 (98-107) mmol/L Carbon Dioxide 30 (22-30) mmol/L Anion Gap 7 mmol/L BUN 27 H (7-17) mg/dL Creatinine 1.02 (0.52-1.04) mg/dL Est GFR (CKD-EPI)AfAm 61 (>60 ml/min/1.73 sqM) Est GFR (CKD-EPI)NonAf 53 (>60 ml/min/1.73 sqM) Glucose 110 H (74-99) mg/dL Calcium 9.3 (8.4-10.2) mg/dL Total Bilirubin 0.8 (0.2-1.3) mg/dL AST 18 (14-36) U/L ALT 12 (4-34) U/L Alkaline Phosphatase 89 (38-126) U/L Total Protein 6.2 L (6.3-8.2) g/dL Albumin 3.5 (3.5-5.0) g/dL Disposition Clinical Impression: Edema of left lower extremity, Fall Disposition: HOME SELF-CARE Condition: Good Instructions (If sedation given, give patient instructions): Leg Edema (ED) Additional Instructions: Every disease is a spectrum and a small chance still exists that a serious condition could develop, for this reason, please monitor yourself closely for new, changing or worsening symptoms, symptoms that do not begin to improve over the course of the next week, symptoms that worsen over the course of the next week, discoloration such as blueness, grayness or pale color to your affected extremity, increased numbness, severe or uncontrolled pain, increased redness, fevers, shortness of breath, inability to tolerate/keep down fluids or your medications, inability to follow up with outpatient providers as instructed and should you experience these symptoms or should you have any further concerns for your wellbeing please return to the ED or call 911 immediately. Please take medications as prescribed until you follow-up with Dr. Woodard, please have your labs rechecked in [address] Woodard, if you have followed up with him at that point, or through your primary care provider. PLEASE call your primary care physician as soon as possible to arrange / discuss plan for followup appointment. Appointment in the next 1-3 days is strongly encouraged if possible. PLEASE let us know here before you leave if there is anything further we can do to be of any assistance. Take care and feel Better! Prescriptions: Furosemide [Lasix] 20 mg PO DAILY 14 Days #14 tab Is patient prescribed a controlled substance at d/c from ED?: No Referrals: Karlo Goins MD [Primary Care Provider] - 1-2 days
[2024-08-24 22:52] LABS: Partial Thromboplastin Time 23.3 sec (22.0-30.0); Prothrombin Time 10.9 sec (10.0-12.5)
--- NOTE | 2024-08-25 00:47 | US ---
EXAM: US Duplex Left Lower Extremity Veins CLINICAL HISTORY: Worsening LE swelling, recent stent and fall TECHNIQUE: Real-time duplex ultrasound scan of the left lower extremity veins integrating B-mode two-dimensional vascular structure, Doppler spectral analysis, color flow Doppler imaging and compression. COMPARISON: No relevant prior studies available. FINDINGS: Deep veins: Unremarkable. No DVT in the visualized common femoral, femoral, proximal deep femoral or popliteal veins. The veins demonstrate normal color flow, are normally compressible, with normal phasic flow and/or augmentation response. The interrogated calf veins are patent. Superficial veins: Unremarkable. No thrombus in the saphenofemoral junction. Soft tissues: Mild subcutaneous edema noted at the calf. No popliteal cyst. IMPRESSION: No evidence for deep vein thrombosis involving the left lower extremity.
--- NOTE | 2024-08-25 00:49 | XR ---
EXAM: XR Left Tibia and Fibula, 2 Views CLINICAL HISTORY: Fall, LE swelling, pain at posterior knee infer TECHNIQUE: Frontal and lateral views of the left tibia and fibula. COMPARISON: No relevant prior studies available. FINDINGS: Bones/joints: Chronic degenerative changes, most notable involving the medial compartment and patellofemoral compartment of the knee. Degenerative changes noted involving the ankle. Prominent posterior calcaneal spurs noted. No acute fracture. No dislocation. Soft tissues: Mild subcutaneous edema suggested throughout the calf and at the ankle. No radiopaque foreign body or subcutaneous emphysema. Vasculature: Incidental vascular stent in the region of the distal superficial femoral artery. IMPRESSION: Mild subcutaneous edema suggested throughout the calf and at the ankle. No radiopaque foreign body or subcutaneous emphysema. No acute osseous abnormality with chronic underlying degenerative changes noted.
[2024-08-25 02:15] VITALS: BP 137/67; PULSE 59; RESP 17
== END 2024-08-25 02:15 | disposition home or self-care (01) ==
LOC: EC 21:05
DX: R60.0 Localized edema (principal); I73.9 Peripheral vascular disease, unspecified; F17.200 Nicotine dependence, unspecified, uncomplicated; Z88.6 Allergy status to analgesic agent; Z91.018 Allergy to other foods; W18.30XA Fall on same level, unspecified, initial encounter
CPT/HCPCS: 36415; 80053; 85025; 85610; 85730; 99285